=== PATIENT | female | born 1990 | race African-American/Black ===

== ENCOUNTER 2016-06-16 10:55 | Inpatient (IN) | payer BC ==
[~2016-06-16] VITALS: Ht 165.1 cm; Wt 86.2 kg
[~2016-06-16 10:55] MED LIST: ADVAIR 250-501 EACH INH; CEPHALEXIN500 MG ORAL; FIORICET1 EA ORAL; NORCO 5-325 TA1 EACH ORAL; ZOFRAN4 M3 ORAL
[2016-06-16] MEDS ORDERED: Ampicillin/Sulbactam Sod 3 GM in NS 100 ML IV SCH (11:45)
[2016-06-16] MEDS: Morphine Sulfate 4mg/ml Inj IVP ONE ×2 (11:45→12:09)
[2016-06-16] MEDS ORDERED: Unasyn 3gm Inj ONE (12:08)
[2016-06-16 12:21] LABS: BASOPHILS % (AUTO) 1.5 % (0.0-2.0); EOSINOPHILS % (AUTO) 5.7 % (0.0-3.0); LYMPHOCYTES % (AUTO) 45.7 % (20.0-45.0); MEAN CORPUSCULAR HEMOGLOBIN 29.6 PG (27.0-31.0); MEAN CORPUSCULAR HGB CONC 32.7 G/DL (32.0-36.0); MEAN CORPUSCULAR VOLUME 91 FL (80-99); MEAN PLATELET VOLUME 8.4 FL (6.5-10.1); MONOCYTES % (AUTO) 6.1 % (1.0-10.0); PLATELET COUNT 234 K/UL (150-450); RED BLOOD COUNT 4.72 M/UL (4.20-5.40); RED CELL DISTRIBUTION WIDTH 12.2 % (11.6-14.8)
--- NOTE | 2016-06-16 12:25 | Emergency Room Report ---
History of Present Illness General Chief Complaint: Wound Recheck/Suture Removal Source: Patient Present Illness HPI Patient is a 25-year-old female who presented after having increased pain and discharge from her surgical sites. Patient was noted to have prior history of hidradenitis suppuritiva. She had previous surgery which she was noted to have some purulent drainage. The patient had subjective fever. She reported older wounds having some drainage Allergies: Coded Allergies: CELECOXIB (Verified Allergy, Unknown, 05/11/16) TRAMADOL (Verified Allergy, Unknown, 05/11/16) Patient History Past Medical History: see triage record Last Menstrual Period: now Now: No Reviewed Nursing Documentation: PMH: Agreed, PSxH: Agreed Nursing Documentation-PMH Past Medical History: No History, Except For Hx Cardiac Problems: No Hx Asthma: Yes Hx Cancer: No Hx Gastrointestinal Problems: No Hx Neurological Problems: No - hydranedritis Review of Systems All Other Systems: negative except mentioned in HPI Physical Exam Vital Signs Date Time Temp Pulse Resp B/P Pulse Ox O2 Delivery O2 Flow Rate FiO2 06/16/16 11:04 99.1 83 18 129/86 98 Room Air Sp02 EP Interpretation: reviewed, normal General Appearance: normal inspection, well appearing, no apparent distress, alert, GCS 15 Head: atraumatic ENT: normal ENT inspection, hearing grossly normal, normal voice Neck: normal inspection, full range of motion, supple, no bony tend Respiratory: normal inspection, lungs clear, normal breath sounds, no respiratory distress, no retraction, no wheezing Cardiovascular #1: regular rate, rhythm, no edema Gastrointestinal: normal inspection, normal bowel sounds, non tender, soft, no guarding, no hernia Genitourinary: no CVA tenderness Musculoskeletal: normal inspection, back normal, normal range of motion Neurologic: normal inspection, alert, oriented x3, responsive, fiber optics supervisor III-XII nml as tested, motor strength/tone normal, speech normal Psychiatric: normal inspection, judgement/insight normal, mood/affect normal Skin: well hydrated, other - purulent drainage to both axilla wound open Medical Decision Making Diagnostic Impression: Primary Impression: Hydradenitis ER Course The patient is a 25-year-old female who presented for bilateral wound discharge. Differential diagnosis included was not limited to wound dehiscence , cellulitis, seroma among others.Because of complexity of patient's case laboratory testing and imaging studies were ordered. The patient was noted to have evidence of purulent drainage from her wounds. The wounds were cultured. The patient started on IV antibiotics. The patient will be admitted to Dr. Carty for further management of infection Labs Test 06/16/16 11:55 White Blood Count 6.0 K/UL (4.8-10.8) Red Blood Count 4.72 M/UL (4.20-5.40) Hemoglobin 14.0 G/DL (12.0-16.0) Hematocrit 42.8 % (37.0-47.0) Mean Corpuscular Volume 91 FL (80-99) Mean Corpuscular Hemoglobin 29.6 PG (27.0-31.0) Mean Corpuscular Hemoglobin Concent 32.7 G/DL (32.0-36.0) Red Cell Distribution Width 12.2 % (11.6-14.8) Platelet Count 234 K/UL (150-450) Mean Platelet Volume 8.4 FL (6.5-10.1) Neutrophils (%) (Auto) 41.0 % (45.0-75.0) Lymphocytes (%) (Auto) 45.7 % (20.0-45.0) Monocytes (%) (Auto) 6.1 % (1.0-10.0) Eosinophils (%) (Auto) 5.7 % (0.0-3.0) Basophils (%) (Auto) 1.5 % (0.0-2.0) Sodium Level 140 mEQ/L (135-145) Potassium Level 3.9 mEQ/L (3.4-4.9) Chloride Level 99 mEQ/L (98-107) Carbon Dioxide Level 25 mEQ/L (20-30) Anion Gap 16 (5-15) Blood Urea Nitrogen 9 mg/dL (7-23) Creatinine 0.9 mg/dL (0.5-0.9) Estimat Glomerular Filtration Rate > 60 mL/min (>60) Glucose Level 96 mg/dL (74-106) Lactic Acid Level 1.50 mmol/L (0.66-2.22) Calcium Level 9.7 mg/dL (8.6-10.2) Total Bilirubin 0.3 mg/dL (0.0-1.2) Aspartate Amino Transf (AST/SGOT) 15 U/L (5-40) Alanine Aminotransferase (ALT/SGPT) 7 U/L (3-33) Alkaline Phosphatase 58 U/L (35-104) Total Creatine Kinase 65 U/L (26-140) Troponin I < 0.30 ng/mL (<=0.30) Total Protein 7.5 g/dL (6.6-8.7) Albumin 4.4 g/dL (3.5-5.2) Globulin 3.1 g/dL Albumin/Globulin Ratio 1.4 (1.0-2.7) Last Vital Signs Date Time Temp Pulse Resp B/P Pulse Ox O2 Delivery O2 Flow Rate FiO2 06/16/16 11:04 99.1 83 18 129/86 98 Room Air Status: unchanged Disposition: ADMITTED INPATIENT Condition: Serious Referrals: NICOLE DRAKE (PCP) Dominguez Foreman Jun 16, 2016 12:25
[2016-06-16 12:38] LABS: TROPONIN I < 0.30 ng/mL (<=0.30)
[2016-06-16 12:41] VITALS: BP 129/104
[2016-06-16 12:42] LABS: ALANINE AMINOTRANSFERASE 7 U/L (3-33); ALBUMIN/GLOBULIN RATIO 1.4 (1.0-2.7); ANION GAP 16 (5-15); ASPARTATE AMINO TRANSFERASE 15 U/L (5-40); CALCIUM 9.7 mg/dL (8.6-10.2); CARBON DIOXIDE 25 mEQ/L (20-30); CHLORIDE 99 mEQ/L (98-107); CREATININE 0.9 mg/dL (0.5-0.9); GLOMERULAR FILTRATION RATE > 60 mL/min (>60); POTASSIUM 3.9 mEQ/L (3.4-4.9); SODIUM 140 mEQ/L (135-145); TOTAL PROTEIN 7.5 g/dL (6.6-8.7)
[2016-06-16 13:24] LABS: HEMOLYSIS 42
[2016-06-16 13:41] LABS: CKMB < 1.5 ng/mL (< 3.8)
[2016-06-16 13:57] VITALS: BP 112/65
[2016-06-16] MEDS ORDERED: VENTOLIN HFA18 GM INH (14:00)
[2016-06-16 15:20] VITALS: BP 116/73
--- NOTE | 2016-06-16 16:15 | History and Physical ---
History of Present Illness General Date patient seen: Jun 16, 2016 Time patient seen: 16:14 Reason for Hospitalization: Wound Recheck/Suture Removal Present Illness HPI Patient is a 25-year-old female who presented after having increased pain and discharge from her surgical sites. Patient was noted to have prior history of hidradenitis suppuritiva. She had previous surgery which she was noted to have some purulent drainage. The patient had subjective fever. She reported older wounds having some drainage. no cp/sob/f/c Allergies: Coded Allergies: CELECOXIB (Verified Allergy, Unknown, 05/11/16) TRAMADOL (Verified Allergy, Unknown, 05/11/16) Medication History Scheduled Albuterol Sulfate (Ventolin Hfa), 1 PUFF INH EVERY 6 HOURS, (Reported) Cephalexin* (Keflex*), 500 MG ORAL EVERY 6 HOURS, (Reported) Fluticasone/Salmeterol (Advair 250-50 Diskus), 1 PUFF INH EVERY 12 HOURS, ( Reported) Scheduled PRN Acetamin/Butalbital/Caffeine* (Fioricet*), 1 TAB ORAL Q6H PRN for For Headache, (Reported) Hydrocodone Bit/Acetaminophen 5-325* ([place] 5-325*), 1 TAB ORAL Q4H PRN for For Pain, (Reported) Hydrocodone Bit/Acetaminophen 5-325* ([place] 5-325*), 2 TAB ORAL Q6H PRN for For Pain, (Reported) Ondansetron* (Zofran*), 4 MG ORAL Q6H PRN for Nausea & Vomiting, (Reported) Patient History Healthcare decision maker Resuscitation status Advanced Directive on File Past Medical/Surgical History Past Medical/Surgical History: (1) Hydradenitis (2) abscess Family History Family History: Patient reports no known family medical history. Social History Social History: (1) No significant social history Review of Systems All Other Systems: negative except mentioned in HPI Physical Exam Physical Exam Narrative General Appearance: normal inspection, well appearing, no apparent distress, alert, GCS 15 Head: atraumatic ENT: normal ENT inspection, hearing grossly normal, normal voice Neck: normal inspection, full range of motion, supple, no bony tend Respiratory: normal inspection, lungs clear, normal breath sounds, no respiratory distress, no retraction, no wheezing Cardiovascular #1: regular rate, rhythm, no edema Gastrointestinal: normal inspection, normal bowel sounds, non tender, soft, no guarding, no hernia Genitourinary: no CVA tenderness Musculoskeletal: normal inspection, back normal, normal range of motion Neurologic: normal inspection, alert, oriented x3, responsive, carpenter general III-XII nml as tested, motor strength/tone normal, speech normal Psychiatric: normal inspection, judgement/insight normal, mood/affect normal Skin: well hydrated, other - purulent drainage to both axilla wound open Last 24 Hour Vital Signs Date Time Temp Pulse Resp B/P Pulse Ox O2 Delivery O2 Flow Rate FiO2 06/16/16 15:20 98.0 79 19 116/73 100 Room Air 06/16/16 13:57 98.0 73 24 112/65 100 Room Air 06/16/16 12:41 98.0 76 18 129/104 99 Room Air 06/16/16 11:04 99.1 83 18 129/86 98 Room Air Laboratory Tests Test 06/16/16 11:55 06/16/16 15:58 White Blood Count 6.0 K/UL (4.8-10.8) Red Blood Count 4.72 M/UL (4.20-5.40) Hemoglobin 14.0 G/DL (12.0-16.0) Hematocrit 42.8 % (37.0-47.0) Mean Corpuscular Volume 91 FL (80-99) Mean Corpuscular Hemoglobin 29.6 PG (27.0-31.0) Mean Corpuscular Hemoglobin Concent 32.7 G/DL (32.0-36.0) Red Cell Distribution Width 12.2 % (11.6-14.8) Platelet Count 234 K/UL (150-450) Mean Platelet Volume 8.4 FL (6.5-10.1) Neutrophils (%) (Auto) 41.0 % (45.0-75.0) L Lymphocytes (%) (Auto) 45.7 % (20.0-45.0) H Monocytes (%) (Auto) 6.1 % (1.0-10.0) Eosinophils (%) (Auto) 5.7 % (0.0-3.0) H Basophils (%) (Auto) 1.5 % (0.0-2.0) Sodium Level 140 mEQ/L (135-145) Potassium Level 3.9 mEQ/L (3.4-4.9) Chloride Level 99 mEQ/L (98-107) Carbon Dioxide Level 25 mEQ/L (20-30) Anion Gap 16 (5-15) H Blood Urea Nitrogen 9 mg/dL (7-23) Creatinine 0.9 mg/dL (0.5-0.9) Estimat Glomerular Filtration Rate > 60 mL/min (>60) Glucose Level 96 mg/dL (74-106) Lactic Acid Level 1.50 mmol/L (0.66-2.22) Calcium Level 9.7 mg/dL (8.6-10.2) Total Bilirubin 0.3 mg/dL (0.0-1.2) Aspartate Amino Transf (AST/SGOT) 15 U/L (5-40) Alanine Aminotransferase (ALT/SGPT) 7 U/L (3-33) Alkaline Phosphatase 58 U/L (35-104) Total Creatine Kinase 65 U/L (26-140) Creatine Kinase MB < 1.5 ng/mL (< 3.8) Creatine Kinase MB Relative Index Troponin I < 0.30 ng/mL (<=0.30) Total Protein 7.5 g/dL (6.6-8.7) Albumin 4.4 g/dL (3.5-5.2) Globulin 3.1 g/dL Albumin/Globulin Ratio 1.4 (1.0-2.7) Urine Color Pending Urine Appearance Pending Urine pH Pending Urine Specific [place] Pending Urine Protein Pending Urine Glucose (UA) Pending Urine Ketones Pending Urine Occult Blood Pending Urine Nitrite Pending Urine Bilirubin Pending Urine Urobilinogen Pending Urine Leukocyte Esterase Pending Height (Feet): 5 Height (Inches): 5.00 Weight (Pounds): 190 Medications Current Medications Medications (Trade) Dose Ordered Sig/Kourtney Route PRN Reason Start Time Stop Time Status Last Admin Dose Admin Ampicillin Sodium/ Sulbactam Sodium/ Sodium Chloride (Unasyn/Sodium Chloride 100ml bag) 100 ml @ 200 mls/hr Q8H IV 06/16/16 11:45 06/17/16 11:44 06/16/16 12:15 Assessment/Plan Problem List: (1) abscess (2) Hydradenitis ICD Codes: L73.2 - Hidradenitis suppurativa SNOMED: 04331735 Status: progressing Assessment/Plan Admit to inpatient - Blood cultures - Start IV abx - Pain control - Surgical consult If patient is required to have surgery, based on the patient's medical history, and other available ancillary data, the patient is a LOW risk for an INTERMEDIATE risk procedure. Per the most recent ACC/AHA guidelines, the patient does not need any further cardiopulmonary testing prior to the procedure and there do not appear to be any clear medical contraindications to proceeding with the proposed procedure Prema Mathias M.D. Jun 16, 2016 16:15
[2016-06-16 16:17] LABS: APPEARANCE,URINE CLEAR; KETONES,URINE 1+ (NEGATIVE); LEUKOCYTE ESTERASE ,URINE 1+ (NEGATIVE); NITRITE,URINE NEGATIVE (NEGATIVE); PH,URINE 6 (4.5-8.0); PROTEIN,URINE NEGATIVE (NEGATIVE); UROBILINOGEN,URINE NORMAL MG/DL (0.0-1.0)
[2016-06-16 16:23] LABS: BACTERIA,URINE FEW /HPF; RBC,URINE 0-2 /HPF (0 - 2); SQUAMOUS EPITHELIAL CELL,UR FEW /LPF (NONE/OCC)
[2016-06-16 16:24] LABS: AMORPHOUS SEDIMENT,UR FEW /LPF; MUCUS,URINE FEW /LPF (NONE/OCC)
[2016-06-16] MEDS: D5 1/2NS 1,000 ML IV SCH (19:00)
[2016-06-17] VITALS (14 sets, daily range): BP systolic 120–159; BP diastolic 72–80
[2016-06-17] MEDS: D5 1/2NS 1,000 ML IV SCH ×2 (08:21→21:58)
--- NOTE | 2016-06-17 09:05 | Pre-Procedure Note/Attestation ---
Pre-Procedure Note/Attestation Complete Prior to Procedure Planned Procedure: bilateral Procedure Narrative: Bilateral axillary and chest wall wound closures Attestation I attest that I discussed the nature of the procedure; its benefits; risks and complications; and alternatives (and the risks and benefits of such alternatives ), prior to the procedure, with the patient (or the patient's legal union contract representative). I attest that, if there was a reasonable possibility of needing a blood transfusion, the patient (or the patient's legal union contract representative) was given the [facility] standardized written summary, pursuant to the [place] Blood Safety Act ([place] Health and Safety Code # 1645, as amended). I attest that I re-evaluated the patient just prior to the surgery and that there has been no change in the patient's H&P, except as documented below: NICOLE DRAKE Jun 17, 2016 09:05
--- NOTE | 2016-06-17 10:07 | Operative Note - PDOC ---
Operative Note Operative Note Pre-op Diagnosis: Open axillary and chest wounds Procedure: Closure of axillary and chest wounds Post-op Diagnosis: same as pre-op Surgeon: Wilda Fingernail Former: Blanca Anesthesia: general Specimen: none Complications: none Condition: stable Estimated Blood Loss: minimal Drains: none Implant(s) used?: No NICOLE DRAKE Jun 17, 2016 10:07
[2016-06-17] MEDS ORDERED: Rate Change PCA 1 Each MISC PRN ×2 (10:15→14:00)
[2016-06-17] MEDS ORDERED: Zolpidem 5mg tab ORAL PRN (10:15)
[2016-06-17] MEDS ORDERED: Lidocaine 1% 10mg/ml/Epi 0.005mg/ml 30ml vial INJ ONE (10:40)
[2016-06-17] MEDS ORDERED: Propofol 10mg/ml 20ml IV ONE (10:53)
[2016-06-17] MEDS ORDERED: Ketorolac 30mg Inj ONE (11:00)
[2016-06-17] MEDS ORDERED: fentaNYL 100 mcg/2 mL IV ONE (11:00)
[2016-06-17] MEDS ORDERED: NS Irrig 1000ml ONE (11:00)
[2016-06-17] MEDS ORDERED: LR 1000ml ONE (11:00)
[2016-06-17] MEDS ORDERED: Midazolam 2mg/2ml Inj ONE (11:00)
[2016-06-17] MEDS ORDERED: Sterile Water Irrig 1000ml IRRIG ONE (11:00)
[2016-06-17] MEDS ORDERED: LR 1000ml 1,000 ML IVLG SCH (11:46)
--- NOTE | 2016-06-17 11:46 | Anethesia Preoperative Eval ---
Anesthesia Pre-op PMH/ROS General Date of Evaluation: Jun 17, 2016 Time of Evaluation: 10:52 Anesthesiologist: Jennifer ASA Score: ASA 2 Mallampati Score Class I : Soft palate, uvula, fauces, pillars visible Class II: Soft palate, uvula, fauces visible Class III: Soft palate, base of uvula visible Class IV: Only hard plate visible Mallampati Classification: Class II Surgeon: Wilda Diagnosis: Recurrent hydradenitis Surgical Procedure: Revision and closure of bilateral axillary wounds Anesthesia History: none Family History: no anesthesia problems Allergies: Coded Allergies: CELECOXIB (Verified Allergy, Unknown, 05/11/16) TRAMADOL (Verified Allergy, Unknown, 05/11/16) Past Medical History Cardiovascular: Denies: CAD, HTN, VA, arrhythmia, other, valve dz Pulmonary: Denies: COPD, KEL, asthma, other Gastrointestinal/Genitourinary: Reports: GERD, Denies: CRI, ESRD, other Neurologic/Psychiatric: Reports: depression/anxiety, Denies: CVA, TIA, dementia, other Endocrine: Denies: DM, hypothyroidism, other, steroids HEENT: Denies: [place] (L), [place] (R), cataract (L), cataract (R), glaucoma, other Musculoskeletal/Integumentary: Reports: other - Recurrent HS, Denies: DDD, DJD, OA, RA, edema Other: other - overweight PMH Narrative: as above PSxH Narrative: Multiple Sx for HS treatment Anesthesia Pre-op Phys. Exam Physician Exam Last Vital Signs Date Time Temp Pulse Resp B/P Pulse Ox O2 Delivery O2 Flow Rate FiO2 06/17/16 08:46 97.9 69 18 124/77 100 Room Air Constitutional: NAD Neurologic: CN 2-12 intact Cardiovascular: RRR, no M/R/G Respiratory: CTA Gastrointestinal: S/NT/ND Airway Exam Mallampati Score: Class II MO: full Neck: flexible ROM: full Teeth: intact Dentures: no lower, no upper Anesthesia Pre-op A/P Labs Hematology Test 06/16/16 11:55 White Blood Count 6.0 K/UL (4.8-10.8) Red Blood Count 4.72 M/UL (4.20-5.40) Hemoglobin 14.0 G/DL (12.0-16.0) Hematocrit 42.8 % (37.0-47.0) Mean Corpuscular Volume 91 FL (80-99) Mean Corpuscular Hemoglobin 29.6 PG (27.0-31.0) Mean Corpuscular Hemoglobin Concent 32.7 G/DL (32.0-36.0) Red Cell Distribution Width 12.2 % (11.6-14.8) Platelet Count 234 K/UL (150-450) Mean Platelet Volume 8.4 FL (6.5-10.1) Neutrophils (%) (Auto) 41.0 % (45.0-75.0) L Lymphocytes (%) (Auto) 45.7 % (20.0-45.0) H Monocytes (%) (Auto) 6.1 % (1.0-10.0) Eosinophils (%) (Auto) 5.7 % (0.0-3.0) H Basophils (%) (Auto) 1.5 % (0.0-2.0) Chemistry Test 06/16/16 11:55 Sodium Level 140 mEQ/L (135-145) Potassium Level 3.9 mEQ/L (3.4-4.9) Chloride Level 99 mEQ/L (98-107) Carbon Dioxide Level 25 mEQ/L (20-30) Anion Gap 16 (5-15) H Blood Urea Nitrogen 9 mg/dL (7-23) Creatinine 0.9 mg/dL (0.5-0.9) Estimat Glomerular Filtration Rate > 60 mL/min (>60) Glucose Level 96 mg/dL (74-106) Lactic Acid Level 1.50 mmol/L (0.66-2.22) Calcium Level 9.7 mg/dL (8.6-10.2) Total Bilirubin 0.3 mg/dL (0.0-1.2) Aspartate Amino Transf (AST/SGOT) 15 U/L (5-40) Alanine Aminotransferase (ALT/SGPT) 7 U/L (3-33) Alkaline Phosphatase 58 U/L (35-104) Total Creatine Kinase 65 U/L (26-140) Creatine Kinase MB < 1.5 ng/mL (< 3.8) Creatine Kinase MB Relative Index Troponin I < 0.30 ng/mL (<=0.30) Total Protein 7.5 g/dL (6.6-8.7) Albumin 4.4 g/dL (3.5-5.2) Globulin 3.1 g/dL Albumin/Globulin Ratio 1.4 (1.0-2.7) Risk Assessment & Plan Assessment: ASA2 Plan: GA with LMA Status Change Before Surgery: No Pre-Antibiotics Drug: Ancef 1gr. Given Within 1 Hr of Incision: Yes Time Given: 11:12 ANH FELIZ M.D. Jun 17, 2016 11:46
--- NOTE | 2016-06-17 11:58 | Consultation ---
DATE OF CONSULTATION: 06/17/2016 CONSULTING PHYSICIAN: Fina Astudillo M.D. HISTORY OF PRESENT ILLNESS: This is a 25-year-old, female, admitted to the emergency room last night for bilateral wound dehiscence under axillary. She is approximately three and half weeks postop from closure of these wounds. She presented with drainage and pain in these areas. She was admitted and started on IV antibiotics by the medical team and I have seen the patient, for evaluation of these wounds. PAST MEDICAL HISTORY: Significant for bilateral axillary and chest wall wound reconstructions. PAST SURGICAL HISTORY: Same as above. MEDICATIONS: Include antibiotics. ALLERGIES: Include tramadol and celecoxib. PHYSICAL EXAMINATION: GENERAL: The patient is alert and oriented. HEART: Regular rate and rhythm. ABDOMEN: Soft, nontender, and nondistended. EXTREMITIES: Examination of the axilla reveals an open wound measuring 2 x 6 cm in the right axilla and a 4 x 6 cm in the left axilla and a 2 x 2 cm open wound on the chest wall medially in the midline. ASSESSMENT AND PLAN: This is a 25-year-old female with bilateral axillary and chest wall wound dehiscence. So, we taken back to the operating room for closure of these wounds. Fina Astudillo M.D. DR: PARMJIT JOB#: [id number] CC: EMILEE
[2016-06-17] MEDS ORDERED: Meperidine 25mg/ml Inj IV PRN (12:00)
[2016-06-17] MEDS ORDERED: Midazolam 2mg/2ml Inj IVP PRN (12:00)
[2016-06-17] MEDS ORDERED: fentaNYL 100 mcg/2 mL IV PRN (12:00)
[2016-06-17] MEDS ORDERED: Metoclopramide 10mg/2ml Inj IVP PRN (12:00)
[2016-06-17] MEDS ORDERED: Morphine Sulfate 2mg/ml Inj IVP PRN ×2 (12:00→14:00)
[2016-06-17] MEDS ORDERED: DiphenhydrAMINE 50mg/ml Inj IVP PRN ×2 (12:00→14:00)
[2016-06-17] MEDS ORDERED: Ketorolac 30mg Inj IV PRN (12:00)
[2016-06-17] MEDS ORDERED: Ipratropium 0.02% Inh Soln 2.5ml UD ONE (13:35)
[2016-06-17] MEDS ORDERED: Naloxone 0.4mg/ml Inj IVP PRN (14:00)
[2016-06-17] MEDS ORDERED: Ipratropium 0.02% Inh Soln 2.5ml UD HHN ONE (14:00)
[2016-06-17] MEDS ORDERED: LORazepam 1mg tab ORAL PRN (14:00)
[2016-06-17] MEDS: PCA Morphine 1mg/ml 30 ML IV PRN (14:19)
[2016-06-17] MEDS: PCA shift volume MISC SCH ×2 (15:00→23:00)
[2016-06-17] MEDS ORDERED: PCA shift volume MISC SCH (15:00)
[2016-06-17] MEDS ORDERED: D5 1/2NS 1000ml IV ONE (18:16)
[2016-06-17] MEDS ORDERED: Tubing IV Secondary IV ONE (18:16)
--- NOTE | 2016-06-17 19:18 | Operative Note - Dictated ---
DATE OF OPERATION: 06/16/2016 PREOPERATIVE DIAGNOSES: 1. Open left axillary wound. 2. Open right axillary wound. 3. Open midline chest wall wound. POSTOPERATIVE DIAGNOSES: 1. Open left axillary wound. 2. Open right axillary wound. 3. Open midline chest wall wound. PROCEDURES: 1. Left axillary wound preparation for flap closure. 2. Reelevation of left chest wall flap for closure of left axillary wound. 3. Right axillary wound preparation for flap closure. 4. Reelevation of right-sided lateral chest wall flap for closure of right axillary wound. 5. Reelevation of medial arm flap for re-closure of right axillary wound. 6. Preparation of chest wall wound for flap closure. 7. Reelevation of left chest wall fasciocutaneous flap for closure of chest wall wound. 8. Reelevation of right chest wall fasciocutaneous flap for closure of chest wall wound. SURGEON: Fina Astudillo M.D. [employer]: Linaet Rios M.D. ANESTHESIA: General. COMPLICATIONS: None. DRAINS: None. DISPOSITION: Stable to the recovery room. INDICATIONS FOR SURGERY: This is a 25-year-old female, who was admitted to the emergency room last night for pain and drainage associated with wounds in her axillae as well as chest wall. She has about one month postoperative from her axillary reconstruction and she presented and was started on IV antibiotics. I saw the patient and felt that she was an appropriate candidate for debridement and re-closure of her wounds. She understood the risks and benefits of surgery and agreed to proceed. DETAILS OF THE OPERATION: The patient was brought to the operating room and laid supine on the operating room table. Her chest wall and bilateral axillae were prepped and draped in a sterile and usual fashion. We first began by addressing the left axillary wound by using a marking pen to delineate the margins of the wound that was opened, 10-blade was then used to excise the wounds down to healthier subcutaneous fat. Once this was done, the wound was copiously irrigated with lavage. Hemostasis was then achieved, left lateral chest wall flap that had been previously elevated was reelevated based off of perforators of the thoracoacromial artery with proximal and distal incisions made to fully mobilize the flap and once this was done, we were able to accomplish closure of the left axillary wound by re-advancing the chest wall flap using #0 and 2-0 Vicryl sutures and a 2-0 Prolene was used to close the skin. We then turned our attention to the right axillary wound which was in a similar fashion marked out with a marking pen and excised using a #15 blade down to healthy subcutaneous fat and in a similar fashion the chest wall flap on that side was elevated based off of perforators of the thoracoacromial artery with proximal and distal incisions also made and we also elevated the medial arm flap that had been previously elevated, this was reelevated with proximal distal incisions made to fully mobilize the flap and the flap was based on perforators of the brachial artery. Once both of these flaps were fully mobilized, the wound was then closed with 0 and 2-0 Vicryl sutures and 2-0 Prolene was used to close the skin. We then turned our attention to the midline chest wall wound which was in between both breasts. A marking pen was used to delineate the margins of the wound. A 15-blade was used to excise the wound down to healthy tissue and then the lateral chest wall flaps in the left and right that have been previously elevated were reelevated based off of perforators of the internal mammary artery with proximal and distal incisions to made fully mobilize both flaps and the flaps were then brought together in the midline using #0 and 2-0 Vicryl sutures and 2-0 Prolene was used to close the skin. The patient tolerated the procedure well. There was no complications. Fina Astudillo M.D. DR: Charles JOB#: [id number] CC:
--- NOTE | 2016-06-17 20:00 | General Progress Note ---
Assessment/Plan Problem List: (1) abscess (2) Hydradenitis ICD Codes: L73.2 - Hidradenitis suppurativa SNOMED: 31741684 (3) PMS (premenstrual syndrome) ICD Codes: N94.3 - Premenstrual tension syndrome SNOMED: 394028, 17807165 Assessment/Plan Admit to inpatient - Blood cultures - Start IV abx, Cefazolin - Pain control - Surgical consult, Dr. Astudillo, pt s/p b/l axillary wound closure 06/17/16: -heat packs Subjective Date patient seen: Jun 17, 2016 Time patient seen: 19:59 Allergies: Coded Allergies: TRAMADOL (Verified Allergy, Intermediate, 06/17/16) REACTION TO MED IS SWOLLEN LEG, NO SHORT OF BREATH CELECOXIB (Verified Allergy, Unknown, 05/11/16) Subjective no acute events o/n Objective Last 24 Hour Vital Signs Date Time Temp Pulse Resp B/P Pulse Ox O2 Delivery O2 Flow Rate FiO2 06/17/16 16:13 18 06/17/16 16:07 98.2 84 19 120/75 99 Room Air 06/17/16 15:34 97.9 06/17/16 15:32 97.9 06/17/16 15:32 97.9 06/17/16 15:00 18 06/17/16 14:57 70 20 145/72 100 Room Air 06/17/16 14:44 20 06/17/16 14:37 71 20 147/78 100 Room Air 06/17/16 14:29 20 06/17/16 14:25 72 20 147/78 100 Room Air 06/17/16 14:24 20 06/17/16 14:19 20 06/17/16 14:07 72 20 147/78 100 Room Air 06/17/16 14:00 73 20 152/78 100 Room Air 06/17/16 13:45 84 20 147/78 100 Room Air 06/17/16 13:32 93 20 149/75 100 Room Air 06/17/16 13:12 107 20 137/73 100 Simple Mask 8.0 06/17/16 13:07 86 20 137/80 100 Simple Mask 8.0 06/17/16 13:02 97.3 86 20 159/75 100 Simple Mask 8.0 06/17/16 08:46 97.9 69 18 124/77 100 Room Air 06/17/16 04:00 97.9 74 18 128/75 99 Room Air Intake and Output 06/16/16 06/17/16 19:00 07:00 Intake Total 100 ml 375 ml Balance 100 ml 375 ml Intake IV Total 100 ml 375 ml # Voids 3 Height (Feet): 5 Height (Inches): 5.00 Weight (Pounds): 190 Objective General Appearance: normal inspection, well appearing, no apparent distress, alert, GCS 15 Head: atraumatic ENT: normal ENT inspection, hearing grossly normal, normal voice Neck: normal inspection, full range of motion, supple, no bony tend Respiratory: normal inspection, lungs clear, normal breath sounds, no respiratory distress, no retraction, no wheezing Cardiovascular #1: regular rate, rhythm, no edema Gastrointestinal: normal inspection, normal bowel sounds, non tender, soft, no guarding, no hernia Genitourinary: no CVA tenderness Musculoskeletal: normal inspection, back normal, normal range of motion Neurologic: normal inspection, alert, oriented x3, responsive, violin teacher III-XII nml as tested, motor strength/tone normal, speech normal Psychiatric: normal inspection, judgement/insight normal, mood/affect normal Skin: well hydrated, incision c/d/i Prema Mathias M.D. Jun 17, 2016 20:00
[2016-06-17] MEDS: Heparin 5000 units/ml inj SUBQ SCH (22:07)
[2016-06-18 04:00] VITALS: BP 128/76
[2016-06-18] MEDS: PCA shift volume MISC SCH ×3 (07:19→23:00)
--- NOTE | 2016-06-18 07:52 | Immediate Post-Op Evaluation ---
Immediate Post-Op Evalulation Immediate Post-Op Evalulation Procedure: Bilateral debridement and closure of axillary wounds Date of Evaluation: Jun 17, 2016 Time of Evaluation: 13:12 IV Fluids: 800 Blood Products: none Estimated Blood Loss: <50 Urinary Output: none Blood Pressure Systolic: 134 Blood Pressure Diastolic: 65 Pulse Rate: 82 Respiratory Rate: 20 O2 Sat by Pulse Oximetry: 99 Temperature (Fahrenheit): 97.3 Pain Score (1-10): 3 Nausea: No Vomiting: No Complications none Patient Status: reacts, patent, none Hydration Status: adequate ANH FELIZ M.D. Jun 18, 2016 07:52
--- NOTE | 2016-06-18 07:54 | 48 Hour Post Anesthesia Eval ---
Post Anesthesia Evaluation Procedure: Bilateral debridement and closure of axillary wounds Date of Evaluation: Jun 18, 2016 Time of Evaluation: 07:53 Blood Pressure Systolic: 128 0: 75 Pulse Rate: 82 Respiratory Rate: 18 Temperature (Fahrenheit): 97.6 O2 Sat by Pulse Oximetry: 98 Airway: patent Nausea: No Vomiting: No Pain Intensity: 3 Hydration Status: adequate Cardiopulmonary Status: stable Mental Status/LOC: patient returned to baseline Follow-up Care/Observations: n/a Post-Anesthesia Complications: none Follow-up care needed: N/A ANH FELIZ M.D. Jun 18, 2016 07:54
[2016-06-18 08:00] VITALS: BP 123/74
--- NOTE | 2016-06-18 09:12 | General Progress Note ---
Progress Note Progress Note Pt seen and examined. POD # 1 and doing well. Dressings intact. Plan for continued IV abx and pain meds. Will take down dressings in 2 days. NICOLE Sharma MD Jun 18, 2016 09:12
[2016-06-18] MEDS: Heparin 5000 units/ml inj SUBQ SCH ×2 (09:28→21:06)
--- NOTE | 2016-06-18 10:48 | General Progress Note ---
Assessment/Plan Problem List: (1) abscess (2) Hydradenitis ICD Codes: L73.2 - Hidradenitis suppurativa SNOMED: 93104872 (3) PMS (premenstrual syndrome) ICD Codes: N94.3 - Premenstrual tension syndrome SNOMED: 991810, 53274668 (4) Macromastia ICD Codes: N62 - Hypertrophy of breast SNOMED: 138919035 Assessment/Plan Admit to inpatient - Blood cultures - Start IV abx, Cefazolin - Pain control - Surgical consult, Dr. Astudillo, pt s/p b/l axillary wound closure 06/17/16: -heat packs pt reports significant and debilitating pain in neck and upper back with neuropathy in arms and intermittent pleurissy, likely 2/2 macromastia. Pt has failed conservative outpatient management with PT and pain management. From the medical standpoint, would recommend consideration for breast reduction surgery for symptom relief. Will consult with surgeon, Dr. Astudillo. Subjective Date patient seen: Jun 18, 2016 Time patient seen: 10:41 Allergies: Coded Allergies: TRAMADOL (Verified Allergy, Intermediate, 06/17/16) REACTION TO MED IS SWOLLEN LEG, NO SHORT OF BREATH CELECOXIB (Verified Allergy, Unknown, 05/11/16) Subjective no acute events o/n; pt reports pain in neck and upper back with neuropathy in arms Objective Last 24 Hour Vital Signs Date Time Temp Pulse Resp B/P Pulse Ox O2 Delivery O2 Flow Rate FiO2 06/18/16 08:00 19 06/18/16 08:00 97.9 72 20 123/74 100 Room Air 06/18/16 07:54 82 18 98 06/18/16 07:52 82 20 99 06/18/16 04:00 18 06/18/16 04:00 97.7 74 18 128/76 98 Room Air 06/18/16 00:00 19 06/17/16 20:34 97.7 83 19 122/72 97 Room Air 06/17/16 20:00 18 06/17/16 16:13 18 06/17/16 16:07 98.2 84 19 120/75 99 Room Air 06/17/16 15:34 97.9 06/17/16 15:32 97.9 06/17/16 15:32 97.9 06/17/16 15:00 18 06/17/16 14:57 70 20 145/72 100 Room Air 06/17/16 14:44 20 06/17/16 14:37 71 20 147/78 100 Room Air 06/17/16 14:29 20 06/17/16 14:25 72 20 147/78 100 Room Air 06/17/16 14:24 20 06/17/16 14:19 20 06/17/16 14:07 72 20 147/78 100 Room Air 06/17/16 14:00 73 20 152/78 100 Room Air 06/17/16 13:45 84 20 147/78 100 Room Air 06/17/16 13:32 93 20 149/75 100 Room Air 06/17/16 13:12 107 20 137/73 100 Simple Mask 8.0 06/17/16 13:07 86 20 137/80 100 Simple Mask 8.0 06/17/16 13:02 97.3 86 20 159/75 100 Simple Mask 8.0 Intake and Output 06/17/16 06/18/16 19:00 07:00 Intake Total 1300 ml 1925 ml Balance 1300 ml 1925 ml Intake Oral 1400 ml IV Total 1300 ml 525 ml # Voids 6 Height (Feet): 5 Height (Inches): 5.00 Weight (Pounds): 190 Objective General Appearance: normal inspection, well appearing, no apparent distress, alert, GCS 15 Head: atraumatic ENT: normal ENT inspection, hearing grossly normal, normal voice Neck: normal inspection, full range of motion, supple, no bony tend Breast: macromastia b/l Respiratory: normal inspection, lungs clear, normal breath sounds, no respiratory distress, no retraction, no wheezing. TTP of posterior ribs on L Cardiovascular #1: regular rate, rhythm, no edema Gastrointestinal: normal inspection, normal bowel sounds, non tender, soft, no guarding, no hernia Genitourinary: no CVA tenderness Musculoskeletal: normal inspection, back normal, normal range of motion Neurologic: normal inspection, alert, oriented x3, responsive, chief librarian circulation department III-XII nml as tested, motor strength/tone normal, speech normal Psychiatric: normal inspection, judgement/insight normal, mood/affect normal Skin: well hydrated, incision c/d/i Prema Mathias M.D. Jun 18, 2016 10:48
[2016-06-18 12:00] VITALS: BP 118/72
[2016-06-18] MEDS ORDERED: DiphenhydrAMINE 25mg/10ml Elixir ORAL PRN (12:45)
[2016-06-18] MEDS: D5 1/2NS 1,000 ML IV SCH (13:50)
[2016-06-18] MEDS: PCA Morphine 1mg/ml 30 ML IV PRN (14:04)
[2016-06-18 16:00] VITALS: BP 125/64
--- NOTE | 2016-06-18 17:40 | General Progress Note ---
Progress Note Progress Note S: pt reports pain in neck and upper back with neuropathy in arms; worse when sitting up or standing for long periods of time Objective General Appearance: normal inspection, well appearing, no apparent distress, alert Head: atraumatic ENT: normal ENT inspection, hearing grossly normal, normal voice Neck: normal inspection, full range of motion, supple, no bony tend Breast: macromastia b/l Respiratory: normal inspection, lungs clear, normal breath sounds, no respiratory distress, no retraction, no wheezing. TTP of posterior ribs on L Cardiovascular #1: regular rate, rhythm, no edema Gastrointestinal: normal inspection, normal bowel sounds, non tender, soft, no guarding, no hernia Genitourinary: no CVA tenderness Musculoskeletal: normal inspection, back normal, normal range of motion Neurologic: normal inspection, alert, oriented x3, responsive, audio narrator III-XII nml as tested, motor strength/tone normal, speech normal Psychiatric: normal inspection, judgement/insight normal, mood/affect normal Skin: well hydrated, incision c/d/i A&P: # Macromastia Pt reports significant and debilitating pain in neck and upper back with neuropathy in arms and intermittent pleurissy, likely 2/2 macromastia. Pt has failed conservative outpatient management with PT and pain management. From the medical standpoint, would recommend consideration for breast reduction surgery for symptom relief. Will consult with surgeon, Dr. Astudillo. Prema Mathias M.D. Jun 18, 2016 17:40
[2016-06-18 20:00] VITALS: BP 131/76
--- NOTE | 2016-06-18 20:32 | Cardiology Report ---
APPROVED REPORT EKG Measurement Heart [id number] Normal sinus rhythm Cannot rule out Anterior infarct, age undetermined Abnormal ECG
[2016-06-19] MEDS: D5 1/2NS 1,000 ML IV SCH ×2 (03:52→13:40)
[2016-06-19 04:00] VITALS: BP 123/86
[2016-06-19] MEDS: PCA shift volume MISC SCH (07:09)
[2016-06-19 08:00] VITALS: BP 131/68
[2016-06-19] MEDS: Cephalexin 500mg cap ORAL SCH ×4 (08:13→21:00)
[2016-06-19] MEDS: Heparin 5000 units/ml inj SUBQ SCH ×2 (08:17→21:00)
[2016-06-19] MEDS: Norco 10mg/325mg tab ORAL PRN (10:14)
[2016-06-19] MEDS ORDERED: Morphine Sulfate 2mg/ml Inj SUBQ PRN ×2 (10:45→11:30)
[2016-06-19 12:00] VITALS: BP 122/69
[2016-06-19] MEDS: Norco 5mg/325mg tab ORAL PRN (14:09)
[2016-06-19] MEDS ORDERED: Morphine Sulfate 2mg/ml Inj IVP PRN (14:15)
[2016-06-19] MEDS ORDERED: NS 110ml ONE (15:32)
--- NOTE | 2016-06-19 15:58 | General Progress Note ---
Assessment/Plan Problem List: (1) abscess (2) Hydradenitis ICD Codes: L73.2 - Hidradenitis suppurativa SNOMED: 80457532 (3) PMS (premenstrual syndrome) ICD Codes: N94.3 - Premenstrual tension syndrome SNOMED: 222991, 43064316 (4) Macromastia ICD Codes: N62 - Hypertrophy of breast SNOMED: 084650282 Assessment/Plan Admit to inpatient - Blood cultures - Start IV abx, Cefazolin--> Cephalexin - Pain control - Surgical consult, Dr. Astudillo, pt s/p b/l axillary wound closure 06/17/16: Subjective Date patient seen: Jun 19, 2016 Time patient seen: 15:57 Allergies: Coded Allergies: TRAMADOL (Verified Allergy, Intermediate, 06/17/16) REACTION TO MED IS SWOLLEN LEG, NO SHORT OF BREATH CELECOXIB (Verified Allergy, Unknown, 05/11/16) Subjective pt lost IV access o/n Objective Last 24 Hour Vital Signs Date Time Temp Pulse Resp B/P Pulse Ox O2 Delivery O2 Flow Rate FiO2 06/19/16 12:00 99.0 77 20 122/69 100 Room Air 06/19/16 08:00 19 06/19/16 08:00 98.1 102 20 131/68 98 Room Air 06/19/16 04:00 98.1 67 18 123/86 100 Room Air 06/19/16 04:00 20 06/19/16 00:00 20 06/18/16 20:00 98.2 87 14 131/76 99 Room Air 06/18/16 19:53 20 06/18/16 16:00 99.0 79 14 125/64 99 Room Air 06/18/16 16:00 19 Intake and Output 06/18/16 06/19/16 19:00 07:00 Intake Total 1110 ml 890 ml Balance 1110 ml 890 ml Intake Oral 460 ml 240 ml IV Total 650 ml 650 ml # Voids 2 3 Height (Feet): 5 Height (Inches): 5.00 Weight (Pounds): 190 Objective General Appearance: normal inspection, well appearing, no apparent distress, alert, GCS 15 Head: atraumatic ENT: normal ENT inspection, hearing grossly normal, normal voice Neck: normal inspection, full range of motion, supple, no bony tend Breast: macromastia b/l Respiratory: normal inspection, lungs clear, normal breath sounds, no respiratory distress, no retraction, no wheezing. TTP of posterior ribs on L Cardiovascular #1: regular rate, rhythm, no edema Gastrointestinal: normal inspection, normal bowel sounds, non tender, soft, no guarding, no hernia Genitourinary: no CVA tenderness Musculoskeletal: normal inspection, back normal, normal range of motion Neurologic: normal inspection, alert, oriented x3, responsive, stripping shovel oiler III-XII nml as tested, motor strength/tone normal, speech normal Psychiatric: normal inspection, judgement/insight normal, mood/affect normal Skin: well hydrated, incision c/d/i Prema Mathias M.D. Jun 19, 2016 15:58
[2016-06-19 16:00] VITALS: BP 130/70
[2016-06-19] MEDS ORDERED: D5 1/2NS 1000ml IV ONE (16:49)
[2016-06-20] MEDS: D5 1/2NS 1,000 ML IV SCH (03:00)
[2016-06-20 04:00] VITALS: BP 127/60
[2016-06-20 08:00] VITALS: BP 125/72
[2016-06-20] MEDS: Cephalexin 500mg cap ORAL SCH ×4 (09:00→21:18)
--- NOTE | 2016-06-20 09:02 | General Progress Note ---
Assessment/Plan Status: stable Assessment/Plan (1) abscess (2) Hydradenitis ICD Codes: L73.2 - Hidradenitis suppurativa SNOMED: 40081249 (3) PMS (premenstrual syndrome) ICD Codes: N94.3 - Premenstrual tension syndrome SNOMED: 143798, 14125052 (4) Macromastia ICD Codes: N62 - Hypertrophy of breast SNOMED: 482118659 Assessment/Plan - Cont Cephalexin - Pain control, bowel regimen, supportive care - Surgical consult, Dr. Astudillo, pt s/p b/l axillary wound closure 06/17/16 - Wound care Subjective Date patient seen: Jun 20, 2016 Time patient seen: 09:00 ROS Limited/Unobtainable: No Constitutional: Reports: no symptoms HEENT: Reports: no symptoms Cardiovascular: Reports: no symptoms Respiratory: Reports: no symptoms Gastrointestinal/Abdominal: Reports: no symptoms Genitourinary: Reports: no symptoms Neurologic/Psychiatric: Reports: no symptoms Endocrine: Reports: no symptoms Hematologic/Lymphatic: Reports: no symptoms Allergies: Coded Allergies: TRAMADOL (Verified Allergy, Intermediate, 06/17/16) REACTION TO MED IS SWOLLEN LEG, NO SHORT OF BREATH CELECOXIB (Verified Allergy, Unknown, 05/11/16) All Systems: reviewed and negative except above Subjective No acute o/n events Pt doing well No complaints Objective Last 24 Hour Vital Signs Date Time Temp Pulse Resp B/P Pulse Ox O2 Delivery O2 Flow Rate FiO2 06/20/16 04:00 98.1 65 20 127/60 99 Room Air 06/19/16 16:00 98.8 76 18 130/70 99 Room Air 06/19/16 12:00 99.0 77 20 122/69 100 Room Air Intake and Output 06/19/16 06/20/16 19:00 07:00 Intake Total 720 ml 610 ml Balance 720 ml 610 ml Intake Oral 720 ml 610 ml # Voids 5 10 # Bowel Movements 1 Height (Feet): 5 Height (Inches): 5.00 Weight (Pounds): 190 Objective General: alert, cooperative, no distress, appears stated age Head: normocephalic, without obvious abnormality, atraumatic Eyes: conjunctivae/corneas clear. PERRL, EOM's intact Throat: lips, mucosa, and tongue normal. MMM Neck: supple, symmetrical, trachea midline, and no JVD Lungs: clear to auscultation bilaterally Heart: regular rate and rhythm, S1, S2 normal, no murmur, click, rub or gallop Abdomen: soft, non-tender, non-distended, bowel sounds normal; no masses or organomegaly Extremities: extremities normal, atraumatic, no cyanosis or edema Pulses: 2+ and symmetric Skin: skin color, texture, turgor normal; no rashes or lesions Neurologic: grossly normal, no focal deficits Arely Hammer M.D. Jun 20, 2016 09:02
[2016-06-20] MEDS: Heparin 5000 units/ml inj SUBQ SCH ×2 (09:57→21:23)
[2016-06-20] MEDS: Norco 10mg/325mg tab ORAL PRN (10:27)
[2016-06-20 12:00] VITALS: BP 120/73
[2016-06-20 16:00] VITALS: BP 125/77
[2016-06-20 20:00] VITALS: BP 141/83
[2016-06-20] MEDS: Norco 5mg/325mg tab ORAL PRN (21:18)
[2016-06-21] VITALS: BP 116/77
[2016-06-21 08:00] VITALS: BP 125/65
[2016-06-21] MEDS: Cephalexin 500mg cap ORAL SCH ×4 (09:09→20:35)
[2016-06-21] MEDS: Heparin 5000 units/ml inj SUBQ SCH ×2 (09:14→20:41)
[2016-06-21] MEDS: Norco 10mg/325mg tab ORAL PRN (09:19)
--- NOTE | 2016-06-21 09:21 | General Progress Note ---
Assessment/Plan Status: stable Assessment/Plan (1) abscess (2) Hydradenitis ICD Codes: L73.2 - Hidradenitis suppurativa SNOMED: 33621215 (3) PMS (premenstrual syndrome) ICD Codes: N94.3 - Premenstrual tension syndrome SNOMED: 436195, 87274403 (4) Macromastia ICD Codes: N62 - Hypertrophy of breast SNOMED: 038531238 Assessment/Plan - Cont Cephalexin - Pain control, bowel regimen, supportive care - Surgical consult, Dr. Astudillo, pt s/p b/l axillary wound closure 06/17/16 - Wound care Subjective Date patient seen: Jun 21, 2016 ROS Limited/Unobtainable: No Constitutional: Reports: no symptoms HEENT: Reports: no symptoms Cardiovascular: Reports: no symptoms Respiratory: Reports: no symptoms Gastrointestinal/Abdominal: Reports: no symptoms Genitourinary: Reports: no symptoms Neurologic/Psychiatric: Reports: no symptoms Endocrine: Reports: no symptoms Hematologic/Lymphatic: Reports: no symptoms Allergies: Coded Allergies: TRAMADOL (Verified Allergy, Intermediate, 06/17/16) REACTION TO MED IS SWOLLEN LEG, NO SHORT OF BREATH CELECOXIB (Verified Allergy, Unknown, 05/11/16) All Systems: reviewed and negative except above Subjective No acute o/n events Pt doing well C/o headache, requested fioricet Passing gas, but no BM yet. Requesting miralax Objective Last 24 Hour Vital Signs Date Time Temp Pulse Resp B/P Pulse Ox O2 Delivery O2 Flow Rate FiO2 06/21/16 08:00 98.1 63 20 125/65 99 Room Air 06/21/16 00:00 97.7 63 19 116/77 94 Room Air 06/20/16 22:17 97.7 06/20/16 20:00 97.9 78 20 141/83 96 Room Air 06/20/16 16:00 97.7 65 20 125/77 99 Room Air 06/20/16 12:00 98.2 65 20 120/73 98 Room Air Intake and Output 06/20/16 06/21/16 19:00 07:00 Intake Total 540 ml 360 ml Balance 540 ml 360 ml Intake Oral 540 ml 360 ml # Voids 3 5 # Bowel Movements 1 Height (Feet): 5 Height (Inches): 5.00 Weight (Pounds): 190 Objective General: alert, cooperative, no distress, appears stated age Head: normocephalic, without obvious abnormality, atraumatic Eyes: conjunctivae/corneas clear. PERRL, EOM's intact Throat: lips, mucosa, and tongue normal. MMM Neck: supple, symmetrical, trachea midline, and no JVD Lungs: clear to auscultation bilaterally Heart: regular rate and rhythm, S1, S2 normal, no murmur, click, rub or gallop Abdomen: soft, non-tender, non-distended, bowel sounds normal; no masses or organomegaly Extremities: extremities normal, atraumatic, no cyanosis or edema Pulses: 2+ and symmetric Skin: skin color, texture, turgor normal; no rashes or lesions Neurologic: grossly normal, no focal deficits Arely Hammer M.D. Jun 21, 2016 09:21
[2016-06-21] MEDS ORDERED: Miralax 17gm pkt ORAL PRN (09:30)
[2016-06-21] MEDS: Pericolace tab ORAL SCH (10:45)
[2016-06-21 12:00] VITALS: BP 133/88
[2016-06-21 16:16] VITALS: BP 140/78
[2016-06-21 20:16] VITALS: BP 118/49
[2016-06-22 08:00] VITALS: BP 129/77
[2016-06-22] MEDS: Cephalexin 500mg cap ORAL SCH ×4 (08:40→21:11)
[2016-06-22] MEDS: Pericolace tab ORAL SCH ×2 (08:40→21:11)
[2016-06-22] MEDS: Heparin 5000 units/ml inj SUBQ SCH ×2 (08:45→21:13)
--- NOTE | 2016-06-22 09:31 | General Progress Note ---
Progress Note Progress Note Pt seen and examined. POD# 5 and doing well. Wounds are healing and no evidence of infection. Continue abx and pain meds. NICOLE Sharma Jun 22, 2016 09:31
[2016-06-22 12:00] VITALS: BP 126/77
[2016-06-22] MEDS: Cyclobenzaprine 10mg Tab ORAL SCH (12:34)
[2016-06-22 16:00] VITALS: BP 125/72
[2016-06-22 18:27] LABS: BASOPHILS % (AUTO) 0.6 % (0.0-2.0); EOSINOPHILS % (AUTO) 3.2 % (0.0-3.0); MEAN CORPUSCULAR HEMOGLOBIN 29.7 PG (27.0-31.0); MEAN CORPUSCULAR HGB CONC 33.4 G/DL (32.0-36.0); MEAN CORPUSCULAR VOLUME 89 FL (80-99); MEAN PLATELET VOLUME 6.4 FL (6.5-10.1); MONOCYTES % (AUTO) 4.7 % (1.0-10.0); NEUTROPHILS % (AUTO) 43.5 % (45.0-75.0); PLATELET COUNT 317 K/UL (150-450); RED BLOOD COUNT 4.32 M/UL (4.20-5.40); RED CELL DISTRIBUTION WIDTH 12.2 % (11.6-14.8); WHITE BLOOD COUNT 6.6 K/UL (4.8-10.8)
--- NOTE | 2016-06-22 18:42 | General Progress Note ---
Assessment/Plan Problem List: (1) abscess (2) Hydradenitis ICD Codes: L73.2 - Hidradenitis suppurativa SNOMED: 64089599 (3) PMS (premenstrual syndrome) ICD Codes: N94.3 - Premenstrual tension syndrome SNOMED: 289680, 16915775 (4) Macromastia ICD Codes: N62 - Hypertrophy of breast SNOMED: 684876134 Assessment/Plan Admit to inpatient - Blood cultures - Start IV abx, Cefazolin--> Cephalexin - Pain control - Surgical consult, Dr. Astudillo, pt s/p b/l axillary wound closure 06/17/16: Subjective Date patient seen: Jun 22, 2016 Time patient seen: 18:42 Allergies: Coded Allergies: TRAMADOL (Verified Allergy, Intermediate, 06/17/16) REACTION TO MED IS SWOLLEN LEG, NO SHORT OF BREATH CELECOXIB (Verified Allergy, Unknown, 05/11/16) Subjective no acute events Objective Last 24 Hour Vital Signs Date Time Temp Pulse Resp B/P Pulse Ox O2 Delivery O2 Flow Rate FiO2 06/22/16 13:33 98.2 06/22/16 12:00 98.4 68 20 126/77 100 Room Air 06/22/16 08:00 98.2 66 20 129/77 98 Room Air 06/21/16 20:16 97.7 69 19 118/49 98 Room Air Intake and Output 06/21/16 06/22/16 19:00 07:00 Intake Total 1120 ml 700 ml Balance 1120 ml 700 ml Intake Oral 1120 ml 700 ml # Voids 1 4 Laboratory Tests 06/22/16 18:15: White Blood Count 6.6, Red Blood Count 4.32, Hemoglobin 12.8, Hematocrit 38.4, Mean Corpuscular Volume 89, Mean Corpuscular Hemoglobin 29.7, Mean Corpuscular Hemoglobin Concent 33.4, Red Cell Distribution Width 12.2, Platelet Count 317, Mean Platelet Volume 6.4L, Neutrophils (%) (Auto) 43.5L, Lymphocytes (%) (Auto) 48.0H, Monocytes (%) (Auto) 4.7, Eosinophils (%) (Auto) 3.2H, Basophils (%) ( Auto) 0.6 Height (Feet): 5 Height (Inches): 5.00 Weight (Pounds): 190 Objective General Appearance: normal inspection, well appearing, no apparent distress, alert, GCS 15 Head: atraumatic ENT: normal ENT inspection, hearing grossly normal, normal voice Neck: normal inspection, full range of motion, supple, no bony tend Breast: macromastia b/l Respiratory: normal inspection, lungs clear, normal breath sounds, no respiratory distress, no retraction, no wheezing. TTP of posterior ribs on L Cardiovascular #1: regular rate, rhythm, no edema Gastrointestinal: normal inspection, normal bowel sounds, non tender, soft, no guarding, no hernia Genitourinary: no CVA tenderness Musculoskeletal: normal inspection, back normal, normal range of motion Neurologic: normal inspection, alert, oriented x3, responsive, card hand III-XII nml as tested, motor strength/tone normal, speech normal Psychiatric: normal inspection, judgement/insight normal, mood/affect normal Skin: well hydrated, incision c/d/i Prema Mathias M.D. Jun 22, 2016 18:42
[2016-06-22 20:00] VITALS: BP 121/69
[2016-06-23 08:00] VITALS: BP 138/70
[2016-06-23] MEDS: Cyclobenzaprine 10mg Tab ORAL SCH (08:26)
[2016-06-23] MEDS: Cephalexin 500mg cap ORAL SCH ×2 (08:26→12:26)
[2016-06-23] MEDS: Heparin 5000 units/ml inj SUBQ SCH ×2 (08:26→21:00)
[2016-06-23 12:00] VITALS: BP 116/73
--- NOTE | 2016-06-23 14:56 | Diagnostic Imaging Report ---
Indication: Chest pain Technique: Single portable AP view of the chest. Findings: Comparison: 05/21/16 Bilateral axillary skin noelle. PICC removed. The bones and extra pulmonary soft tissues, cardiomediastinal silhouette, pulmonary vasculature and parenchyma, and pleural surfaces otherwise unremarkable. IMPRESSION: Recent bilateral axillary surgery interval PICC removal Otherwise negative portable AP chest.
[2016-06-23 16:19] VITALS: BP 130/68
--- NOTE | 2016-06-23 18:02 | General Progress Note ---
Assessment/Plan Problem List: (1) abscess (2) Hydradenitis ICD Codes: L73.2 - Hidradenitis suppurativa SNOMED: 58648766 (3) PMS (premenstrual syndrome) ICD Codes: N94.3 - Premenstrual tension syndrome SNOMED: 684099, 14595621 (4) Macromastia ICD Codes: N62 - Hypertrophy of breast SNOMED: 532620295 Assessment/Plan Admit to inpatient - Blood cultures -wound cx with amp sensitive E. faecalis - Start IV abx, Cefazolin--> po Cephalexin--> Amoxicillin - Pain control - Surgical consult, Dr. Astudillo, pt s/p b/l axillary wound closure 06/17/16: Subjective Date patient seen: Jun 23, 2016 Time patient seen: 18:01 Allergies: Coded Allergies: TRAMADOL (Verified Allergy, Intermediate, 06/17/16) REACTION TO MED IS SWOLLEN LEG, NO SHORT OF BREATH CELECOXIB (Verified Allergy, Unknown, 05/11/16) Subjective no acute events Objective Last 24 Hour Vital Signs Date Time Temp Pulse Resp B/P Pulse Ox O2 Delivery O2 Flow Rate FiO2 06/23/16 16:19 97.9 84 18 130/68 100 Room Air 06/23/16 12:00 98.1 63 20 116/73 98 Room Air 06/23/16 09:25 97.9 06/23/16 08:00 97.9 82 20 138/70 96 Room Air 06/22/16 20:00 97.9 64 19 121/69 99 Room Air Intake and Output 06/22/16 06/23/16 19:00 07:00 Intake Total 240 ml 600 ml Balance 240 ml 600 ml Intake Oral 240 ml 600 ml # Voids 1 3 Laboratory Tests 06/22/16 18:15: White Blood Count 6.6, Red Blood Count 4.32, Hemoglobin 12.8, Hematocrit 38.4, Mean Corpuscular Volume 89, Mean Corpuscular Hemoglobin 29.7, Mean Corpuscular Hemoglobin Concent 33.4, Red Cell Distribution Width 12.2, Platelet Count 317, Mean Platelet Volume 6.4L, Neutrophils (%) (Auto) 43.5L, Lymphocytes (%) (Auto) 48.0H, Monocytes (%) (Auto) 4.7, Eosinophils (%) (Auto) 3.2H, Basophils (%) ( Auto) 0.6 Height (Feet): 5 Height (Inches): 5.00 Weight (Pounds): 190 Objective General Appearance: normal inspection, well appearing, no apparent distress, alert, GCS 15 Head: atraumatic ENT: normal ENT inspection, hearing grossly normal, normal voice Neck: normal inspection, full range of motion, supple, no bony tend Breast: macromastia b/l Respiratory: normal inspection, lungs clear, normal breath sounds, no respiratory distress, no retraction, no wheezing. TTP of posterior ribs on L Cardiovascular #1: regular rate, rhythm, no edema Gastrointestinal: normal inspection, normal bowel sounds, non tender, soft, no guarding, no hernia Genitourinary: no CVA tenderness Musculoskeletal: normal inspection, back normal, normal range of motion Neurologic: normal inspection, alert, oriented x3, responsive, tactical debriefer III-XII nml as tested, motor strength/tone normal, speech normal Psychiatric: normal inspection, judgement/insight normal, mood/affect normal Skin: well hydrated, incision c/d/i Prema Mathias M.D. Jun 23, 2016 18:02
[2016-06-23] MEDS: Amoxicillin 500mg cap ORAL SCH (19:21)
[2016-06-23 20:30] VITALS: BP 119/68
[2016-06-23] MEDS: Pericolace tab ORAL SCH (21:00)
[2016-06-24 04:00] VITALS: BP 120/74
[2016-06-24 08:00] VITALS: BP 122/79
[2016-06-24] MEDS: Amoxicillin 500mg cap ORAL SCH ×3 (08:19→17:59)
[2016-06-24] MEDS: Cyclobenzaprine 10mg Tab ORAL SCH (08:19)
[2016-06-24] MEDS: Heparin 5000 units/ml inj SUBQ SCH ×2 (08:19→21:37)
[2016-06-24] MEDS: Norco 5mg/325mg tab ORAL PRN (09:04)
--- NOTE | 2016-06-24 11:15 | General Progress Note ---
Assessment/Plan Problem List: (1) abscess (2) Hydradenitis ICD Codes: L73.2 - Hidradenitis suppurativa SNOMED: 41506739 (3) PMS (premenstrual syndrome) ICD Codes: N94.3 - Premenstrual tension syndrome SNOMED: 775546, 43450288 (4) Macromastia ICD Codes: N62 - Hypertrophy of breast SNOMED: 161394815 Assessment/Plan Admit to inpatient - Blood cultures -wound cx with amp sensitive E. faecalis - Start IV abx, Cefazolin--> po Cephalexin--> Amoxicillin - Pain control - Surgical consult, Dr. Astudillo, pt s/p b/l axillary wound closure 06/17/16: Subjective Date patient seen: Jun 24, 2016 Time patient seen: 11:14 Allergies: Coded Allergies: TRAMADOL (Verified Allergy, Intermediate, 06/17/16) REACTION TO MED IS SWOLLEN LEG, NO SHORT OF BREATH CELECOXIB (Verified Allergy, Unknown, 05/11/16) Subjective no acute events Objective Last 24 Hour Vital Signs Date Time Temp Pulse Resp B/P Pulse Ox O2 Delivery O2 Flow Rate FiO2 06/24/16 10:03 98.8 06/24/16 08:00 98.8 75 20 122/79 98 Room Air 06/24/16 04:00 97.2 78 19 120/74 98 Room Air 06/23/16 20:30 97.7 68 19 119/68 99 Room Air 06/23/16 16:19 97.9 84 18 130/68 100 Room Air 06/23/16 12:00 98.1 63 20 116/73 98 Room Air Intake and Output 06/23/16 06/24/16 19:00 07:00 Intake Total 700 ml 240 ml Output Total 0 ml Balance 700 ml 240 ml Intake Oral 700 ml 240 ml Output Urine Total 0 ml # Voids 2 2 # Bowel Movements 1 Height (Feet): 5 Height (Inches): 5.00 Weight (Pounds): 190 Objective General Appearance: normal inspection, well appearing, no apparent distress, alert, GCS 15 Head: atraumatic ENT: normal ENT inspection, hearing grossly normal, normal voice Neck: normal inspection, full range of motion, supple, no bony tend Breast: macromastia b/l Respiratory: normal inspection, lungs clear, normal breath sounds, no respiratory distress, no retraction, no wheezing. TTP of posterior ribs on L Cardiovascular #1: regular rate, rhythm, no edema Gastrointestinal: normal inspection, normal bowel sounds, non tender, soft, no guarding, no hernia Genitourinary: no CVA tenderness Musculoskeletal: normal inspection, back normal, normal range of motion Neurologic: normal inspection, alert, oriented x3, responsive, slitter helper III-XII nml as tested, motor strength/tone normal, speech normal Psychiatric: normal inspection, judgement/insight normal, mood/affect normal Skin: well hydrated, incision c/d/i Prema Mathias M.D. Jun 24, 2016 11:15
[2016-06-24 12:00] VITALS: BP 140/87
[2016-06-24] MEDS: Neosporin Oint 15gm TOPIC SCH ×2 (12:06→17:59)
[2016-06-24 16:09] VITALS: BP 133/88
[2016-06-24 20:00] VITALS: BP 122/71
[2016-06-25 08:00] VITALS: BP 122/73
[2016-06-25] MEDS: Cyclobenzaprine 10mg Tab ORAL SCH (08:25)
[2016-06-25] MEDS: Amoxicillin 500mg cap ORAL SCH ×3 (08:25→17:30)
[2016-06-25] MEDS: Neosporin Oint 15gm TOPIC SCH ×2 (08:25→17:37)
[2016-06-25] MEDS: Heparin 5000 units/ml inj SUBQ SCH ×2 (08:25→21:00)
[2016-06-25 12:00] VITALS: BP 110/57
--- NOTE | 2016-06-25 15:17 | General Progress Note ---
Assessment/Plan Problem List: (1) abscess (2) Hydradenitis ICD Codes: L73.2 - Hidradenitis suppurativa SNOMED: 37131740 (3) PMS (premenstrual syndrome) ICD Codes: N94.3 - Premenstrual tension syndrome SNOMED: 448748, 19009862 (4) Macromastia ICD Codes: N62 - Hypertrophy of breast SNOMED: 563662945 Assessment/Plan Admit to inpatient - Blood cultures -wound cx with amp sensitive E. faecalis - Start IV abx, Cefazolin--> po Cephalexin--> Amoxicillin - Pain control - Surgical consult, Dr. Astudillo, pt s/p b/l axillary wound closure 06/17/16: Subjective Date patient seen: Jun 25, 2016 Time patient seen: 15:16 Allergies: Coded Allergies: TRAMADOL (Verified Allergy, Intermediate, 06/17/16) REACTION TO MED IS SWOLLEN LEG, NO SHORT OF BREATH CELECOXIB (Verified Allergy, Unknown, 05/11/16) Subjective no acute events Objective Last 24 Hour Vital Signs Date Time Temp Pulse Resp B/P Pulse Ox O2 Delivery O2 Flow Rate FiO2 06/25/16 12:00 98.1 84 20 110/57 100 Room Air 06/25/16 08:00 98.4 79 20 122/73 99 Room Air 06/24/16 20:00 97.7 101 19 122/71 96 Room Air 06/24/16 16:09 98.1 97 19 133/88 98 Room Air Intake and Output 06/24/16 06/25/16 19:00 07:00 Intake Total 240 ml 740 ml Balance 240 ml 740 ml Intake Oral 240 ml 740 ml # Voids 1 4 Height (Feet): 5 Height (Inches): 5.00 Weight (Pounds): 190 Objective General Appearance: normal inspection, well appearing, no apparent distress, alert, GCS 15 Head: atraumatic ENT: normal ENT inspection, hearing grossly normal, normal voice Neck: normal inspection, full range of motion, supple, no bony tend Breast: macromastia b/l Respiratory: normal inspection, lungs clear, normal breath sounds, no respiratory distress, no retraction, no wheezing. TTP of posterior ribs on L Cardiovascular #1: regular rate, rhythm, no edema Gastrointestinal: normal inspection, normal bowel sounds, non tender, soft, no guarding, no hernia Genitourinary: no CVA tenderness Musculoskeletal: normal inspection, back normal, normal range of motion Neurologic: normal inspection, alert, oriented x3, responsive, gym instructor III-XII nml as tested, motor strength/tone normal, speech normal Psychiatric: normal inspection, judgement/insight normal, mood/affect normal Skin: well hydrated, incision c/d/i Prema Mathias M.D. Jun 25, 2016 15:17
[2016-06-25 16:06] VITALS: BP 133/91
[2016-06-25 20:00] VITALS: BP 127/78
[2016-06-26 08:00] VITALS: BP 125/50
[2016-06-26] MEDS: Amoxicillin 500mg cap ORAL SCH (09:00)
[2016-06-26] MEDS: Neosporin Oint 15gm TOPIC SCH (09:00)
[2016-06-26] MEDS: Heparin 5000 units/ml inj SUBQ SCH (09:00)
[2016-06-26] MEDS: Cyclobenzaprine 10mg Tab ORAL SCH (09:00)
[2016-06-26] MEDS ORDERED: NORCO 10-325 T1 EACH ORAL (09:23)
[2016-06-26] MEDS ORDERED: AMOXICILLI400 MG/5 M ORAL (09:23)
[2016-06-26] MEDS ORDERED: CYCLOBENZAPRINE10 MG ORAL (09:24)
[2016-06-26] MEDS ORDERED: NS 550ML IV ONE (09:29)
--- NOTE | 2016-06-26 18:34 | Discharge Summary ---
Discharge Summary Hospital Course Date of Admission Jun 16, 2016 at 12:14 Date of Discharge Jun 26, 2016 at 09:30 Admitting Diagnosis hidradenitis, wound infection HPI Rox Tejeda is a 25 year old female who was admitted on Jun 16, 2016 at 12: 14 for Hidradenitis, Wound Infection Consultations surgery Hospital Course Admitted to inpatient med surg -wound cx with amp sensitive E. faecalis - Start IV abx, Cefazolin--> po Cephalexin--> Amoxicillin - Pain control - Surgical consult, Dr. Astudillo, pt s/p b/l axillary wound closure 06/17/16 Discharge Medications Continued Medications: Amoxicillin (Amoxicillin) 400 Mg/5 Ml Susp.recon 500 MG ORAL THREE TIMES A DAY for 7 Days, ML Cyclobenzaprine Hcl* (Flexeril*) 10 Mg Tablet 10 MG ORAL BID for spasms, TAB Hydrocodone Bit/Acetaminophen 10-325* ([place] 10-325*) 1 Each Tablet 1 TAB ORAL Q6H PRN for For Pain, #10 TAB 0 Refills PRN PAIN Discharge Condition Upon Discharge: stable Discharge Disposition Patient was discharged to Home (01) Discharge Diagnoses: (1) abscess (2) Hydradenitis Prema Mathias M.D. Jun 26, 2016 18:34
== END 2016-06-26 09:30 | disposition home or self-care (01) | DRG 581 ==
LOC: EMR 11:25 → EDBEDREQ 12:07 → 4W 12:14 → EDBEDREQ 16:42 → 3E 06-17
PROC: 0JXD0ZZ Transfer Right Upper Arm Subcutaneous Tissue and Fascia, Open Approach (ICD-10-PCS; principal; 2016-06-16)
PROC: 0JX60ZZ Transfer Chest Subcutaneous Tissue and Fascia, Open Approach (ICD-10-PCS; principal; 2016-06-16)
DX: L02.412 Cutaneous abscess of left axilla (principal); N62 Hypertrophy of breast; L73.2 Hidradenitis suppurativa; L02.411 Cutaneous abscess of right axilla; N94.3 Premenstrual tension syndrome; Z88.8 Allergy status to other drugs, medicaments and biological substances
CPT/HCPCS: 36415; 71010; 80053; 81003; 82550; 82553; 83605; 84484; 85025; 87070; 87181; 87205; 93005; 94003; 94150; C9399; J2180; J2250; J2405

== ENCOUNTER 2016-07-06 07:07 | Inpatient (IN) | payer BC ==
[2016-07-06] VITALS (11 sets, daily range): BP systolic 119–155; BP diastolic 73–101
[~2016-07-06] VITALS: Ht 165.1 cm; Wt 85.3 kg
[~2016-07-06 07:07] MED LIST changes: +AMOXICILLI400 MG/5 M ORAL; +CYCLOBENZAPRINE10 MG ORAL; +NORCO 10-325 T1 EACH ORAL; +VENTOLIN HFA18 GM INH
[2016-07-06] MEDS ORDERED: Bacitracin 50000 Units Vial ONE (07:41)
[2016-07-06] MEDS ORDERED: Lidocaine 1% 10mg/ml/Epi 0.005mg/ml 30ml vial INJ ONE ×2 (07:41→13:19)
--- NOTE | 2016-07-06 08:15 | Pre-Procedure Note/Attestation ---
Pre-Procedure Note/Attestation Complete Prior to Procedure Planned Procedure: bilateral Procedure Narrative: Bilateral breast reduction and closure of axillary wounds and groin debridement Attestation I attest that I discussed the nature of the procedure; its benefits; risks and complications; and alternatives (and the risks and benefits of such alternatives ), prior to the procedure, with the patient (or the patient's legal client services representative). I attest that, if there was a reasonable possibility of needing a blood transfusion, the patient (or the patient's legal client services representative) was given the [facility] standardized written summary, pursuant to the [place] Blood Safety Act ([place] Health and Safety Code # 1645, as amended). I attest that I re-evaluated the patient just prior to the surgery and that there has been no change in the patient's H&P, except as documented below: NICOLE DRAKE Jul 06, 2016 08:15
[2016-07-06] MEDS ORDERED: Metoclopramide 10mg/2ml Inj IVP PRN (08:30)
[2016-07-06] MEDS ORDERED: Zolpidem 5mg tab ORAL PRN (08:30)
[2016-07-06] MEDS ORDERED: LR 1000ml ONE (08:30)
[2016-07-06] MEDS ORDERED: Neostigmine 1mg/ml 10ml Inj ONE (08:30)
[2016-07-06] MEDS ORDERED: fentaNYL 250mcg/5ml ONE (08:30)
[2016-07-06] MEDS ORDERED: Labetalol 5mg/ml 20ml vial IV ONE ×2 (08:30)
[2016-07-06] MEDS ORDERED: Midazolam 2mg/2ml Inj ONE (08:30)
[2016-07-06] MEDS ORDERED: Glycopyrrolate 0.2mg/ml 1ml Vial ONE (08:30)
[2016-07-06] MEDS ORDERED: Lidocaine 1% MPF 10mg/ml 5ml ONE (08:30)
[2016-07-06] MEDS ORDERED: NS Irrig 1000ml ONE (08:30)
[2016-07-06] MEDS ORDERED: Sterile Water Irrig 1000ml IRRIG ONE (08:30)
[2016-07-06] MEDS ORDERED: Propofol 10mg/ml 20ml IV ONE (08:30)
[2016-07-06] MEDS ORDERED: Ketamine 500mg Inj ONE (08:30)
[2016-07-06] MEDS ORDERED: Zemuron 50mg/5ml Inj IV ONE (08:30)
[2016-07-06] MEDS ORDERED: Hydromorphone 0.5mg/0.5ml inj IVP PRN (09:00)
[2016-07-06] MEDS ORDERED: Morphine Sulfate 2mg/ml Inj IV PRN (09:00)
[2016-07-06] MEDS ORDERED: Rate Change PCA 1 Each MISC PRN (09:00)
[2016-07-06] MEDS: Heparin 5000 units/ml inj SUBQ SCH ×2 (09:00→21:00)
--- NOTE | 2016-07-06 09:48 | Anethesia Preoperative Eval ---
Anesthesia Pre-op PMH/ROS General Date of Evaluation: Jul 06, 2016 Time of Evaluation: 08:30 Anesthesiologist: PARMJIT ASA Score: ASA 2 Mallampati Score Class I : Soft palate, uvula, fauces, pillars visible Class II: Soft palate, uvula, fauces visible Class III: Soft palate, base of uvula visible Class IV: Only hard plate visible Mallampati Classification: Class II Surgeon: VIDAL Diagnosis: BREAST ENLARGEMENT Surgical Procedure: BILAT BREEAST REDUCTION, BILAT AXILLARY I&D Anesthesia History: none Family History: no anesthesia problems Allergies: Coded Allergies: TRAMADOL (Verified Allergy, Intermediate, 06/17/16) REACTION TO MED IS SWOLLEN LEG, NO SHORT OF BREATH CELECOXIB (Verified Allergy, Unknown, 05/11/16) Medications: see eMAR Past Medical History Cardiovascular: Denies: CAD, HTN, PA, arrhythmia, other, valve dz Pulmonary: Reports: asthma Gastrointestinal/Genitourinary: Denies: CRI, ESRD, GERD, other Neurologic/Psychiatric: Denies: CVA, TIA, dementia, depression/anxiety, other Endocrine: Denies: DM, hypothyroidism, other, steroids HEENT: Denies: WAMP[place]OAG (L), WAMP[place]OAG (R), cataract (L), cataract (R), glaucoma, other Hematology/Immune: Denies: DVT, anemia, bleeding disorder, other Musculoskeletal/Integumentary: Denies: DDD, DJD, OA, RA, edema, other Other: obesity Anesthesia Pre-op Phys. Exam Physician Exam Last Vital Signs Date Time Temp Pulse Resp B/P Pulse Ox O2 Delivery O2 Flow Rate FiO2 07/06/16 07:46 98.3 73 18 136/73 99 Room Air Constitutional: NAD Neurologic: CN 2-12 intact Cardiovascular: RRR Respiratory: CTA Gastrointestinal: S/NT/ND Airway Exam Mallampati Score: Class II MO: full ROM: full Teeth: intact Dentures: no lower, no upper Anesthesia Pre-op A/P Labs Urine Test Test 07/06/16 07:25 Urine HCG, Qualitative Negative Risk Assessment & Plan Assessment: ASA2 Plan: GET Status Change Before Surgery: No Pre-Antibiotics Drug: ANCEF Given Within 1 Hr of Incision: Yes Time Given: 09:00 GAUTAM PARNELL M.D. Jul 06, 2016 09:48
--- NOTE | 2016-07-06 09:50 | Immediate Post-Op Evaluation ---
GAUTAM PARNELL M.D. 07/06/16 0950: Immediate Post-Op Evalulation Immediate Post-Op Evalulation Procedure: BILAT BREAST REDUCTION, BILAT AXILLARY I&D Date of Evaluation: Jul 06, 2016 Time of Evaluation: 13:00 IV Fluids: 1500 Blood Products: 0 Estimated Blood Loss: 0 Urinary Output: 0 Blood Pressure Systolic: 123 Blood Pressure Diastolic: 77 Pulse Rate: 65 Respiratory Rate: 14 O2 Sat by Pulse Oximetry: 99 Temperature (Fahrenheit): 98 Pain Score (1-10): 2 Nausea: No Vomiting: No Patient Status: awake, patent, none Hydration Status: adequate Drug: ANCEF Given Within 1 Hr of Incision: Yes Time Given: 09:00 JEANNIE MIGUEL M.D. 07/06/16 1346: Immediate Post-Op Evalulation Immediate Post-Op Evalulation Procedure: Bilateral breast reduction Date of Evaluation: Jul 06, 2016 Time of Evaluation: 13:47 IV Fluids: 3L Blood Products: 0 Estimated Blood Loss: min Urinary Output: 250 Blood Pressure Systolic: 128 Blood Pressure Diastolic: 75 Pulse Rate: 119 Respiratory Rate: 19 O2 Sat by Pulse Oximetry: 100 Temperature (Fahrenheit): 98.8 Pain Score (1-10): 0 Nausea: No Vomiting: No Complications 0 Patient Status: awake, reacts, none Hydration Status: adequate Drug: Ancef 2g Given Within 1 Hr of Incision: Yes Time Given: 09:00 GAUTAM PARNELL M.D. Jul 06, 2016 09:50 JEANNIE MIGUEL M.D. Jul 06, 2016 13:46
[2016-07-06] MEDS ORDERED: Bacitracin 50000 Units Vial IRRIG ONE (10:00)
--- NOTE | 2016-07-06 13:45 | Operative Note - PDOC ---
Operative Note Operative Note Procedure: Bilateral breast reduction Surgeon: Wilda [employer] Clerk: Patrick Anesthesia: general Specimen: yes Complications: none Estimated Blood Loss: volume - 50 Drains: JOSEPHINE Implant(s) used?: No NICOLE DRAKE Jul 06, 2016 13:45
[2016-07-06] MEDS ORDERED: Ipratropium 0.02% Inh Soln 2.5ml UD HHN ONE (14:15)
[2016-07-06] MEDS: PCA Morphine 1mg/ml 30 ML IV PRN ×2 (14:35→21:57)
[2016-07-06] MEDS: PCA shift volume MISC SCH ×2 (15:00→23:24)
[2016-07-06] MEDS: ceFAZolin sod 1 GM in D5W 55 ML IVPB SCH (18:18)
--- NOTE | 2016-07-06 22:27 | Operative Note - Dictated ---
PREOPERATIVE DIAGNOSES: 1. Bilateral macromastia. 2. Bilateral axillary wound. 3. Right groin abscess. 4. Mons abscess. POSTOPERATIVE DIAGNOSES: 1. Bilateral macromastia. 2. Bilateral axillary wound. 3. Right groin abscess. 4. Mons abscess. PROCEDURES: 1. Debridement of left axilla. 2. Debridement of right axilla. 3. Flap readvancement closure of left axilla. 4. Flap readvancement closure of right axilla. 5. Bilateral breast reduction using the inferior pedicle technique Velez pattern. 6. Right groin debridement with complex closure. 7. Mons debridement and complex closure. SURGEON: Fina Astudillo M.D. SPRAY MACHINE LOADER: Laci Nguyen M.D. ANESTHESIA: General. COMPLICATIONS: None. SPECIMEN: Included bilateral breast tissue right side 440 grams, left side was 520 grams. DRAINS: Included 215 JOSEPHINE in each breast. DISPOSITION: Stable to the recovery room. INDICATIONS FOR SURGERY: This is a 25-year-old, -[place] female, well known to ca, who has previously undergone axillary reconstruction and has been doing well. However, she has had an axillary wound dehiscence on both sides and also has been dealing with significant neck and shoulder pain secondary to bilaterally enlarged breast and has been authorized to undergo breast reduction. She understood the risks and benefits of surgery and agreed to proceed. DETAILS OF THE OPERATION: The patient was brought to the operating room and laid supine on the operating table. Her bilateral axilla, chest and groins were prepped and draped in a sterile usual fashion. We first began by debriding the open wound region of the left axilla. Once this was done, the medial chest wall flap that had been previously elevated was readvanced to the same tissue plane level with perforators off the thoracoacromial artery perfusing this flap and once this was fully mobilized, the wound was copiously irrigated and the flap was readvanced and closed with 0 and 2-0 Vicryl sutures and 2-0 Prolene for the skin. We then turned our attention to the contralateral right axillary wound in a similar fashion. The wound was debrided down to healthy tissue and the previously raised medial to small flap was readvanced to the same tissue plane with perforators off the thoracoacromial artery feeding this flap, and wound was closed using 0 and 2-0 Vicryl sutures and 2-0 Prolene for the skin. Preoperatively, the patient was marked for bilateral breast reduction using an inferior pedicle Velez pattern technique. With this done, we began using the [employer] cutter to lainey out the needle with the new nipple areolar dimensions and we then proceeded first on the right side to de-epithelialize the inferior pedicle. Once the pedicle was de-epithelialized, the medial and lateral triangular skin wedges, which were preoperatively marked were excised and the pedicle was then fully mobilized down to the chest wall level. The superior breast tissue was then fully mobilized off the chest wall. The keyhole pattern above the pedicle was then excised. With this done, we proceeded to measure the total volume on the right side it was 440 grams removed. The pedicle was then inset and the breast was tailor tacked closed to assess the shape. Before committing to a size we then went to the contralateral breast and in a similar fashion the left breast was de-epithelialized and the triangular medial and lateral wedges were excised. The skin flaps above the pedicle were elevated at the level of the pectoralis fascia and with this done the pedicle was then inset and tailor tacked closed and the size measures 520 grams of tissue removed. With the head of the bed then placed up we noted there was good symmetry and there was no need for further removal of tissue on either side. We then proceeded to remove all of the tailor tacked noelle. Both breast wounds were copiously irrigated. We began closure of the breast wound. We first did it to close the right breast wound over a 15 JOSEPHINE drain. The vertical limb was brought together as was the transverse inferior limb. The sutures used for this were 0 and 2-0 Vicryl sutures. The nipple was inset using 2-0 Vicryl sutures and the skin was closed using 3-0 Monocryl for the vertical limb and the transverse limb and a baseball 5-0 Prolene stitch was used to close the nipple-areolar complex. This exact methadone closure was pursued on the contralateral left breast. Of note, we also anchored inferior pedicle with fascial sutures of the pectoralis fascia using 0 Vicryl suture superiorly, medially, and laterally to prevent the risk of bottoming out of the breast by being able to anchor the pedicle and the breast tissue at that level. With the bilateral breast reconstruction completed we then turned our attention to the wound and the mons and the right groin. Elliptical incisions were made about around both wounds and the tissue was excised down to the subcutaneous fat and once debridement was completed, both wounds were closed in a complex closure fashion using 0 Vicryl sutures and 2-0 Vicryl for the dermis and 2-0 Prolene was used to close the skin. The patient tolerated the procedure well. There were no complications. Fina Astudillo M.D. DR: ANNI JOB#: [id number] CC:
[2016-07-06] MEDS: DiphenhydrAMINE 50mg/ml Inj IVP PRN (22:55)
[2016-07-07] MEDS: ceFAZolin sod 1 GM in D5W 55 ML IVPB SCH ×3 (01:09→19:37)
[2016-07-07] MEDS: PCA shift volume MISC SCH ×3 (07:28→23:14)
[2016-07-07 08:00] VITALS: BP 153/89
[2016-07-07] MEDS: Heparin 5000 units/ml inj SUBQ SCH ×2 (08:27→21:36)
[2016-07-07] MEDS: DiphenhydrAMINE 50mg/ml Inj IVP PRN ×2 (10:12→19:36)
[2016-07-07] MEDS: PCA Morphine 1mg/ml 30 ML IV PRN (10:28)
[2016-07-07] MEDS: Morphine Sulfate 4mg/ml Inj SUBQ PRN (10:31)
--- NOTE | 2016-07-07 11:00 | General Progress Note ---
Progress Note Progress Note Pt seen and examined. POD# 1 and doing well. Drains with SS output. Will take down dressing in 2 days. NICOLE Sharma MD Jul 07, 2016 11:00
[2016-07-07 12:30] VITALS: BP 131/74
--- NOTE | 2016-07-07 13:57 | History and Physical ---
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 Allergies: Coded Allergies: TRAMADOL (Verified Allergy, Intermediate, 06/17/16) REACTION TO MED IS SWOLLEN LEG, NO SHORT OF BREATH CELECOXIB (Verified Allergy, Unknown, 05/11/16) HYDROMORPHONE (Verified Allergy, Unknown, 07/06/16) Medication History Scheduled Albuterol Sulfate (Ventolin Hfa), 1 PUFF INH EVERY 6 HOURS, (Reported) Scheduled PRN Acetamin/Butalbital/Caffeine* (Fioricet*), 1 TAB ORAL Q6H PRN for For Headache, (Reported) Hydrocodone Bit/Acetaminophen 5-325* ([place] 5-325*), 2 TAB ORAL Q6H PRN for For Pain, (Reported) Discontinued Medications Amoxicillin (Amoxicillin), 500 MG ORAL THREE TIMES A DAY, (Reported) Discontinued Reason: MD discontinued med Cephalexin* (Keflex*), 500 MG ORAL EVERY 6 HOURS, (Reported) Discontinued Reason: MD discontinued med Cyclobenzaprine Hcl* (Flexeril*), 10 MG ORAL BID, (Reported) Discontinued Reason: Pt stopped taking med Fluticasone/Salmeterol (Advair 250-50 Diskus), 1 PUFF INH EVERY 12 HOURS, ( Reported) Discontinued Reason: Pt stopped taking med Ondansetron* (Zofran*), 4 MG ORAL Q6H PRN for Nausea & Vomiting, (Reported) Discontinued Reason: Pt stopped taking med Patient History Healthcare decision maker N Resuscitation status Full Code Advanced Directive on File Past Medical/Surgical History Past Medical/Surgical History: (1) Inguinal abscess (2) Hydradenitis (3) Macromastia Family History Family History: Patient reports no known family medical history. Social History Social History: (1) No significant social history Review of Systems All Other Systems: negative except mentioned in HPI Physical Exam General Appearance: no apparent distress, alert HEENT: normocephalic, atraumatic, anicteric, mucous membranes moist, PERRL, EOMI, pharynx normal, no JVD Neck: non-tender, supple Respiratory/Chest: lungs clear, normal breath sounds, no respiratory distress, no accessory muscle use Breasts: other - b/l macromastia Cardiovascular/Chest: normal peripheral pulses, normal rate, regular rhythm Abdomen: normal bowel sounds, non tender, soft, no mass Extremities: non-tender, normal inspection Skin Exam: warm/dry Neurologic: operations section manager II-XII grossly normal, no motor/sensory deficits, alert Musculoskeletal: normal muscle bulk Last 24 Hour Vital Signs Date Time Temp Pulse Resp B/P Pulse Ox O2 Delivery O2 Flow Rate FiO2 07/07/16 12:49 100.4 07/07/16 12:30 99.1 125 18 131/74 100 Room Air 07/07/16 12:00 18 07/07/16 12:00 100.4 07/07/16 11:01 99.0 07/07/16 10:58 99.0 07/07/16 08:00 18 07/07/16 08:00 99.0 125 18 153/89 100 Room Air 07/07/16 04:00 16 07/07/16 00:00 16 07/06/16 21:57 15 07/06/16 20:34 15 07/06/16 20:00 99.1 110 20 119/91 99 Room Air 07/06/16 16:30 15 07/06/16 16:00 98.2 112 19 146/96 98 Room Air 07/06/16 15:20 15 07/06/16 15:05 13 07/06/16 15:00 98.7 95 16 146/95 100 Nasal Cannula 3.0 07/06/16 14:50 12 07/06/16 14:50 98.8 07/06/16 14:45 98 15 151/97 100 Nasal Cannula 3.0 07/06/16 14:35 92 13 155/95 100 Nasal Cannula 3.0 07/06/16 14:35 18 07/06/16 14:20 94 18 148/100 100 Simple Mask 6.0 07/06/16 14:05 105 14 153/101 100 Simple Mask 6.0 Intake and Output 07/06/16 07/07/16 19:00 07:00 Intake Total 1155 ml 480 ml Output Total 95 ml 560 ml Balance 1060 ml -80 ml Intake Oral 480 ml IV Total 1155 ml Output Urine Total 500 ml Drainage Total 45 ml 60 ml Estimated Blood Loss 50 ml # Voids 1 # Bowel Movements 2 Height (Feet): 5 Height (Inches): 5.00 Weight (Pounds): 188 Medications Current Medications Medications (Trade) Dose Ordered Sig/Kourtney Route PRN Reason Start Time Stop Time Status Last Admin Dose Admin Acetaminophen 650 mg 650 mg Q4H PRN ORAL FEVER 07/06/16 08:30 08/05/16 08:29 07/07/16 11:50 Cefazolin Sodium/ Dextrose (Ancef/D5W) 55 ml @ 110 mls/hr Q8HR@0200,1000,1800 IVPB 07/06/16 18:00 07/13/16 17:59 07/07/16 08:23 Cetylpyridinium Chloride (Cepacol) 1 lozenge Q2H PRN SUJEY SORE THROAT 07/06/16 16:30 08/05/16 16:29 07/07/16 08:22 Diphenhydramine HCl 50 mg 50 mg Q6H PRN IVP Itching 07/06/16 16:30 08/05/16 16:29 07/07/16 10:12 Heparin Sodium (Porcine) (Heparin 5000 units/ml) 5,000 units EVERY 12 HOURS SUBQ 07/06/16 09:00 08/05/16 08:59 07/07/16 08:27 Metoclopramide HCl (Reglan) 10 mg Q6H PRN IVP Nausea & Vomiting 07/06/16 08:30 08/05/16 08:29 07/07/16 02:01 Miscellaneous Medication (SELF PAY SPECIALIST Rate Change) 1 ea DAILY PRN MISC rate change 07/06/16 09:00 07/08/16 08:59 Miscellaneous Medication (SELF PAY SPECIALIST shift volume) 1 ea Q8HR@07,15,23 MISC 07/06/16 15:00 07/08/16 14:59 07/07/16 07:28 Morphine Sulfate (Morphine Sulfate) 2 mg Q2H PRN IV Moderate Pain (Pain Scale 4-6) 07/06/16 09:00 07/08/16 08:59 Morphine Sulfate (Morphine Sulfate) 4 mg Q3H PRN SUBQ Severe Pain (Pain Scale 7-10) 07/06/16 09:00 07/08/16 08:59 07/07/16 10:31 Morphine Sulfate (SELF PAY SPECIALIST Morphine) 30 ml @ 0 mls/hr Q24H PRN IV For Pain 07/06/16 09:00 07/08/16 08:59 07/07/16 10:28 Naloxone HCl (Narcan) 0.1 mg PRN IV . 07/06/16 09:00 07/08/16 08:59 Ondansetron HCl (Zofran) 4 mg Q6H PRN IVP Nausea & Vomiting 07/06/16 08:30 08/05/16 08:29 07/06/16 21:37 Zolpidem Tartrate (Ambien) 5 mg DAILYPRN PRN ORAL Insomnia 07/06/16 08:30 08/05/16 08:29 Assessment/Plan Problem List: (1) Pleuritic pain ICD Codes: R07.81 - Pleurodynia SNOMED: 2157903 (2) abscess (3) Macromastia ICD Codes: N62 - Hypertrophy of breast SNOMED: 259424494 (4) Hydradenitis ICD Codes: L73.2 - Hidradenitis suppurativa SNOMED: 05954911 (5) Inguinal abscess ICD Codes: L02.214 - Cutaneous abscess of groin SNOMED: 10256396 Status: progressing Assessment/Plan Admit to inpatient med/surg - Blood cultures - labs - Start IV abx - Pain control - Surgical consult for breast reduction surgery If patient is required to have surgery, based on the patient's medical history, and other available ancillary data, the patient is a LOW risk for an INTERMEDIATE risk procedure. Per the most recent ACC/AHA guidelines, the patient does not need any further cardiopulmonary testing prior to the procedure and there do not appear to be any clear medical contraindications to proceeding with the proposed procedure Prema Mathias M.D. Jul 07, 2016 13:57
--- NOTE | 2016-07-07 15:00 | 48 Hour Post Anesthesia Eval ---
Post Anesthesia Evaluation Procedure: Bilateral breast reduction Date of Evaluation: Jul 07, 2016 Time of Evaluation: 08:00 Blood Pressure Systolic: 153 0: 89 Pulse Rate: 125 Respiratory Rate: 18 Temperature (Fahrenheit): 99 O2 Sat by Pulse Oximetry: 100 Airway: patent Nausea: No Vomiting: No Pain Intensity: 3 Hydration Status: adequate Cardiopulmonary Status: at baseline Mental Status/LOC: patient returned to baseline Post-Anesthesia Complications: 0 Follow-up care needed: N/A - further care as per primary team JEANNIE MIGUEL M.D. Jul 07, 2016 15:00
[2016-07-07] MEDS ORDERED: Norco 5mg/325mg tab ORAL PRN ×2 (15:45)
[2016-07-07] MEDS ORDERED: Norco 7.5mg/325mg tab ORAL PRN (15:45)
[2016-07-07 16:01] VITALS: BP 115/70
[2016-07-07] MEDS ORDERED: Norco 10mg/325mg tab ORAL PRN (18:15)
[2016-07-07 20:00] VITALS: BP 120/74
[2016-07-07 21:43] LABS: APPEARANCE,URINE CLEAR; KETONES,URINE 2+ (NEGATIVE); LEUKOCYTE ESTERASE ,URINE NEGATIVE (NEGATIVE); NITRITE,URINE NEGATIVE (NEGATIVE); PH,URINE 5 (4.5-8.0); PROTEIN,URINE NEGATIVE (NEGATIVE); UROBILINOGEN,URINE NORMAL MG/DL (0.0-1.0)
[2016-07-07 22:01] LABS: RBC,URINE 0-2 /HPF (0 - 2)
[2016-07-07 22:02] LABS: SQUAMOUS EPITHELIAL CELL,UR OCCASIONAL /LPF (NONE/OCC); WBC,URINE 0-2 /HPF (0 - 2)
[2016-07-07 22:03] LABS: BACTERIA,URINE OCCASIONAL /HPF
[2016-07-08 00:29] VITALS: BP 128/72
[2016-07-08] MEDS: ceFAZolin sod 1 GM in D5W 55 ML IVPB SCH ×3 (01:57→17:05)
[2016-07-08] MEDS: Morphine Sulfate 4mg/ml Inj SUBQ PRN (06:01)
[2016-07-08] MEDS: PCA shift volume MISC SCH (06:59)
[2016-07-08 08:16] VITALS: BP 112/61
--- NOTE | 2016-07-08 09:27 | Diagnostic Imaging Report ---
APPROVED REPORT CPT Code: 57411 Present Symptoms Upper Extremity Pain: Right RIGHT UPPER EXTREMITY: Venous imaging reveals patency of the internal jugular, subclavian, axillary and brachial veins. The cephalic and basilic veins are also patent. Doppler indicates normal spontaneous flow within these venous segments.
[2016-07-08 09:46] LABS: BASOPHILS % (AUTO) 0.6 % (0.0-2.0); LYMPHOCYTES % (AUTO) 24.1 % (20.0-45.0); MEAN CORPUSCULAR HEMOGLOBIN 30.4 PG (27.0-31.0); MEAN CORPUSCULAR HGB CONC 34.4 G/DL (32.0-36.0); MEAN CORPUSCULAR VOLUME 88 FL (80-99); MEAN PLATELET VOLUME 7.9 FL (6.5-10.1); MONOCYTES % (AUTO) 5.4 % (1.0-10.0); PLATELET COUNT 251 K/UL (150-450); RED BLOOD COUNT 3.05 M/UL (4.20-5.40); RED CELL DISTRIBUTION WIDTH 11.9 % (11.6-14.8); WHITE BLOOD COUNT 9.6 K/UL (4.8-10.8)
[2016-07-08 10:03] LABS: ALANINE AMINOTRANSFERASE 5 U/L (3-33); ALBUMIN/GLOBULIN RATIO 1.3 (1.0-2.7); ANION GAP 13 (5-15); ASPARTATE AMINO TRANSFERASE 10 U/L (5-40); CALCIUM 8.8 mg/dL (8.6-10.2); CARBON DIOXIDE 25 mEQ/L (20-30); CHLORIDE 99 mEQ/L (98-107); CREATININE 0.7 mg/dL (0.5-0.9); GLOMERULAR FILTRATION RATE > 60 mL/min (>60); HEMOLYSIS 0; POTASSIUM 3.3 mEQ/L (3.4-4.9); SODIUM 137 mEQ/L (135-145); TOTAL PROTEIN 5.8 g/dL (6.6-8.7)
[2016-07-08] MEDS: Heparin 5000 units/ml inj SUBQ SCH ×2 (10:05→21:00)
[2016-07-08] MEDS: DuoNeb 0.5-3(2.5)mg/3ml neb HHN SCH ×4 (11:20→22:37)
[2016-07-08 11:31] VITALS: BP 109/65
--- NOTE | 2016-07-08 14:24 | Diagnostic Imaging Report ---
Indication: Chest pain Technique: One view of the chest Comparison: 06/16/2016 Findings: Lungs and pleural spaces are clear. Heart size is normal. Impression: No acute process
--- NOTE | 2016-07-08 15:37 | General Progress Note ---
Assessment/Plan Problem List: (1) Pleuritic pain ICD Codes: R07.81 - Pleurodynia SNOMED: 8099703 (2) abscess (3) Macromastia ICD Codes: N62 - Hypertrophy of breast SNOMED: 300790877 (4) Hydradenitis ICD Codes: L73.2 - Hidradenitis suppurativa SNOMED: 63830699 (5) Inguinal abscess ICD Codes: L02.214 - Cutaneous abscess of groin SNOMED: 79466488 (6) Bronchitis ICD Codes: J40 - Bronchitis, not specified as acute or chronic SNOMED: 33505437 Status: progressing Assessment/Plan Admit to inpatient med/surg - Blood cultures - labs - Start IV abx - Pain control - S/p breast reduction surgery 07/06/16 -CXR with no acute findings - IVF Subjective Date patient seen: Jul 08, 2016 Time patient seen: 15:35 Allergies: Coded Allergies: TRAMADOL (Verified Allergy, Intermediate, 06/17/16) REACTION TO MED IS SWOLLEN LEG, NO SHORT OF BREATH CELECOXIB (Verified Allergy, Unknown, 05/11/16) HYDROMORPHONE (Verified Allergy, Unknown, 07/06/16) Subjective pt with f/c since yesterday after surgery; +productive cough--brown colored sputum. pt endorses that she had 2 asthma exacerbations last year. No dysuria and no LE swelling. not using IS consistently Objective Last 24 Hour Vital Signs Date Time Temp Pulse Resp B/P Pulse Ox O2 Delivery O2 Flow Rate FiO2 07/08/16 11:33 115 18 97 Room Air 07/08/16 11:32 113 18 98 Room Air 07/08/16 11:31 98.2 115 20 109/65 97 Room Air 07/08/16 10:05 98.4 07/08/16 08:16 98.4 111 20 112/61 97 Room Air 07/08/16 08:00 18 07/08/16 06:59 99.0 07/08/16 04:00 18 07/08/16 00:29 98.8 117 20 128/72 98 Room Air 07/08/16 00:00 18 07/07/16 20:00 100.0 125 20 120/74 94 Room Air 07/07/16 20:00 18 07/07/16 16:01 98.6 130 20 115/70 99 Room Air 07/07/16 16:00 18 Intake and Output 07/07/16 07/08/16 19:00 07:00 Intake Total 840 ml 405 ml Output Total 30 ml 30 ml Balance 810 ml 375 ml Intake Oral 840 ml 240 ml IV Total 165 ml Drainage Total 30 ml 30 ml # Voids 3 5 Laboratory Tests 07/07/16 20:00: Urine Color Pale yellow, Urine Appearance Clear, Urine pH 5, Urine Specific [place] 1.015, Urine Protein Negative, Urine Glucose (UA) Negative, Urine Ketones 2+H, Urine Occult Blood Negative, Urine Nitrite Negative, Urine Bilirubin Negative, Urine Urobilinogen Normal, Urine Leukocyte Esterase Negative , Urine RBC 0-2, Urine WBC 0-2, Urine Squamous Epithelial Cells Occasional, Urine Bacteria Occasional 07/08/16 09:15: White Blood Count 9.6, Red Blood Count 3.05L, Hemoglobin 9.2L, Hematocrit 26.9L , Mean Corpuscular Volume 88, Mean Corpuscular Hemoglobin 30.4, Mean Corpuscular Hemoglobin Concent 34.4, Red Cell Distribution Width 11.9, Platelet Count 251, Mean Platelet Volume 7.9, Neutrophils (%) (Auto) 68.0, Lymphocytes (% ) (Auto) 24.1, Monocytes (%) (Auto) 5.4, Eosinophils (%) (Auto) 2.0, Basophils ( %) (Auto) 0.6, Sodium Level 137, Potassium Level 3.3L, Chloride Level 99, Carbon Dioxide Level 25, Anion Gap 13, Blood Urea Nitrogen 5L, Creatinine 0.7, Estimat Glomerular Filtration Rate > 60, Glucose Level 107H, Calcium Level 8.8, Iron Level 11L, Total Bilirubin 0.3, Aspartate Amino Transf (AST/SGOT) 10, Alanine Aminotransferase (ALT/SGPT) 5, Alkaline Phosphatase 47, Total Protein 5.8L, Albumin 3.3L, Globulin 2.5, Albumin/Globulin Ratio 1.3 Height (Feet): 5 Height (Inches): 5.00 Weight (Pounds): 188 Objective General Appearance: no apparent distress, alert HEENT: normocephalic, atraumatic, anicteric, mucous membranes moist, PERRL, EOMI, pharynx normal, no JVD Neck: non-tender, supple Respiratory/Chest: lungs clear, normal breath sounds, no respiratory distress, no accessory muscle use Cardiovascular/Chest: normal peripheral pulses, normal rate, regular rhythm Abdomen: normal bowel sounds, non tender, soft, no mass Extremities: non-tender, normal inspection Skin Exam: warm/dry and intact Neurologic: aerospace manager II-XII grossly normal, no motor/sensory deficits, alert Musculoskeletal: normal muscle bulk Prema Mathias M.D. Jul 08, 2016 15:37
[2016-07-08 16:49] VITALS: BP 106/53
[2016-07-08] MEDS ORDERED: Morphine Sulfate 2mg/ml Inj IM ONE (17:15)
[2016-07-08] MEDS: Morphine Sulfate 2mg/ml Inj IVP PRN (19:25)
[2016-07-08] MEDS ORDERED: Norco 5mg/325mg tab ORAL PRN (19:45)
[2016-07-08 20:34] VITALS: BP 106/60
[2016-07-09] MEDS: Norco 7.5mg/325mg tab ORAL PRN ×2 (00:13→09:15)
[2016-07-09] MEDS: ceFAZolin sod 1 GM in D5W 55 ML IVPB SCH (01:43)
[2016-07-09] MEDS: DuoNeb 0.5-3(2.5)mg/3ml neb HHN SCH ×2 (02:44→07:40)
[2016-07-09 04:00] VITALS: BP 130/79
[2016-07-09] MEDS: Morphine Sulfate 2mg/ml Inj IVP PRN (05:45)
[2016-07-09 08:13] VITALS: BP 127/78
[2016-07-09] MEDS ORDERED: NORCO 10-325 T1 EACH ORAL (08:29)
[2016-07-09] MEDS ORDERED: LEVAQUIN750 MG ORAL (08:29)
[2016-07-09] MEDS ORDERED: ALBUTEROL2.5 MG/3 M INH (08:31)
[2016-07-09] MEDS: Heparin 5000 units/ml inj SUBQ SCH (09:00)
[2016-07-09] MEDS ORDERED: Tubing IV Secondary IV ONE (10:10)
[2016-07-09] MEDS ORDERED: NS 275ml ONE (10:10)
--- NOTE | 2016-07-09 10:20 | Discharge Summary ---
Discharge Summary Hospital Course Date of Admission Jul 06, 2016 at 16:08 Date of Discharge 07/09/16 Admitting Diagnosis HPI Rox Tejeda is a 25 year old female who was admitted on Jul 06, 2016 at 16: 08 for Macromastia Consultations surgery Hospital Course Admitted to inpatient med/surg - IV abx - Pain control - S/p breast reduction surgery 07/06/16 -post op tachycardia and productive cough with low grade fever--CXR with no acute findings; pt received IS and nebs and IVF with improvement Discharge Medications Continued Medications: Albuterol Sulfate* (Albuterol Sulfate Hhn*) 2.5 Mg/3 Ml Vial.neb 3 ML INH QID PRN for Shortness of Breath, #30 EA Hydrocodone Bit/Acetaminophen 10-325* ([place] 10-325*) 1 Each Tablet 1 TAB ORAL Q4H PRN for For Pain, #30 TAB 0 Refills PRN PAIN Levofloxacin* (Levaquin*) 750 Mg Tablet 750 MG ORAL DAILY, TAB Discontinued Medications: Acetamin/Butalbital/Caffeine* (Fioricet*) 1 Ea Tab 1 TAB ORAL Q6H PRN for For Headache, #15 TAB 0 Refills Albuterol Sulfate (Ventolin Hfa) 18 Gm Hfa.aer.ad 1 PUFF INH EVERY 6 HOURS, #18 GM 0 Refills Hydrocodone Bit/Acetaminophen 5-325* ([place] 5-325*) 1 Each Tablet 2 TAB ORAL Q6H PRN for For Pain, #30 TAB 0 Refills Discharge Condition Upon Discharge: stable Discharge Disposition Patient was discharged to Home (01) Discharge Diagnoses: (1) Macromastia (2) Hydradenitis (3) Pleuritic pain (4) Bronchitis Prema Mathias M.D. Jul 09, 2016 10:20
[2016-07-10 07:45] VITALS: BP 123/77
== END 2016-07-09 10:11 | disposition home or self-care (01) | DRG 571 ==
LOC: SUR 07:07 → 3E 16:08
PROC: 0JQC0ZZ Repair Pelvic Region Subcutaneous Tissue and Fascia, Open Approach (ICD-10-PCS; principal; 2016-07-06 08:30)
PROC: 0HBV0ZZ Excision of Bilateral Breast, Open Approach (ICD-10-PCS; principal; 2016-07-06 08:30)
PROC: 0JBC0ZZ Excision of Pelvic Region Subcutaneous Tissue and Fascia, Open Approach (ICD-10-PCS; principal; 2016-07-06 08:30)
PROC: 0JQ60ZZ Repair Chest Subcutaneous Tissue and Fascia, Open Approach (ICD-10-PCS; principal; 2016-07-06 08:30)
PROC: 0JD60ZZ Extraction of Chest Subcutaneous Tissue and Fascia, Open Approach (ICD-10-PCS; principal; 2016-07-06 08:30)
DX: N62 Hypertrophy of breast (principal); T81.31XA Disruption of external operation (surgical) wound, not elsewhere classified, initial encounter; L02.214 Cutaneous abscess of groin; R07.81 Pleurodynia; L73.2 Hidradenitis suppurativa; R00.0 Tachycardia, unspecified; J40 Bronchitis, not specified as acute or chronic
CPT/HCPCS: 36415; 71010; 80053; 81001; 81025; 82962; 83540; 85025; 87040; 93971; 94003; 94150; 94644; J2250; J2405; J2710; J2765; J7620; J8499

== ENCOUNTER 2016-07-28 12:43 | Inpatient (IN) | payer BC ==
[~2016-07-28] VITALS: Ht 165.1 cm; Wt 82.6 kg
[~2016-07-28 12:43] MED LIST changes: +ALBUTEROL2.5 MG/3 M INH; +LEVAQUIN750 MG ORAL
[2016-07-28] MEDS ORDERED: Ketorolac 30mg Inj IV ONE (13:45)
--- NOTE | 2016-07-28 14:25 | Diagnostic Imaging Report ---
Indication: Chest pain Technique: One view of the chest Comparison: 07/08/2016 Findings: Lungs and pleural spaces are clear. Heart size is normal . No significant interim change Impression: No acute process
[2016-07-28 14:31] VITALS: BP 110/62
[2016-07-28 14:32] LABS: APPEARANCE,URINE SLIGHTLY CLOUDY; BASOPHILS % (AUTO) 1.1 % (0.0-2.0); EOSINOPHILS % (AUTO) 2.2 % (0.0-3.0); KETONES,URINE NEGATIVE (NEGATIVE); LEUKOCYTE ESTERASE ,URINE NEGATIVE (NEGATIVE); LYMPHOCYTES % (AUTO) 51.2 % (20.0-45.0); MEAN CORPUSCULAR HEMOGLOBIN 26.9 PG (27.0-31.0); MEAN CORPUSCULAR HGB CONC 31.6 G/DL (32.0-36.0); MEAN CORPUSCULAR VOLUME 85 FL (80-99); MEAN PLATELET VOLUME 7.1 FL (6.5-10.1); MONOCYTES % (AUTO) 6.4 % (1.0-10.0); NEUTROPHILS % (AUTO) 39.2 % (45.0-75.0); NITRITE,URINE NEGATIVE (NEGATIVE); PH,URINE 5 (4.5-8.0); PLATELET COUNT 379 K/UL (150-450); PROTEIN,URINE 1+ (NEGATIVE); RED CELL DISTRIBUTION WIDTH 12.7 % (11.6-14.8); UROBILINOGEN,URINE NORMAL MG/DL (0.0-1.0); WHITE BLOOD COUNT 7.2 K/UL (4.8-10.8)
[2016-07-28 14:46] LABS: BACTERIA,URINE FEW /HPF; RBC,URINE 0-2 /HPF (0 - 2); SQUAMOUS EPITHELIAL CELL,UR FEW /LPF (NONE/OCC); WBC,URINE 0-2 /HPF (0 - 2)
[2016-07-28 14:47] LABS: INR 1.1 (0.9-1.1)
[2016-07-28 14:51] LABS: ALANINE AMINOTRANSFERASE 5 U/L (3-33); ALBUMIN/GLOBULIN RATIO 1.8 (1.0-2.7); ANION GAP 17 (5-15); ASPARTATE AMINO TRANSFERASE 9 U/L (5-40); CALCIUM 9.3 mg/dL (8.6-10.2); CARBON DIOXIDE 25 mEQ/L (20-30); CHLORIDE 100 mEQ/L (98-107); CREATININE 0.8 mg/dL (0.5-0.9); GLOMERULAR FILTRATION RATE > 60 mL/min (>60); HEMOLYSIS 0; SODIUM 142 mEQ/L (135-145); TOTAL PROTEIN 6.9 g/dL (6.6-8.7); TROPONIN I < 0.30 ng/mL (<=0.30)
[2016-07-28 15:51] VITALS: BP 115/64
[2016-07-28] MEDS ORDERED: ceFAZolin 1gm/50ml Premix 50 ML IVPB ONE (16:00)
[2016-07-28 16:59] VITALS: BP 115/73
[2016-07-28] MEDS ORDERED: Mylanta II UD 30ml ORAL PRN (17:45)
[2016-07-28] MEDS ORDERED: Miralax 17gm pkt ORAL PRN (17:45)
[2016-07-28] MEDS ORDERED: Morphine Sulfate 2mg/ml Inj IVP PRN (17:45)
[2016-07-28] MEDS ORDERED: Morphine Sulfate 4mg/ml Inj IVP PRN (17:45)
[2016-07-28] MEDS ORDERED: Milk of Magnesia 30ml Ud ORAL PRN (17:45)
[2016-07-28] MEDS ORDERED: LORazepam Inj 2mg/ml 1ml IV PRN (17:45)
[2016-07-28] MEDS ORDERED: Albuterol ud Inhalation IN-LINE PRN (17:45)
--- NOTE | 2016-07-28 17:57 | History and Physical ---
History of Present Illness General Date patient seen: Jul 28, 2016 Time patient seen: 17:54 Reason for Hospitalization: General Complaint Present Illness HPI 25 y/o AA female with hx of hidradenitis, presents with uncontrolled pain in the L axillary region. Pt has had previous surgery for abscess previously without complications. Her L axillary wound has partially opened up and is painful. No fevers/chills, has taken PO abx as outpt but without much impact. No chest pain or dyspnea, no abd pain or n/v. Allergies: Coded Allergies: TRAMADOL (Verified Allergy, Intermediate, 06/17/16) REACTION TO MED IS SWOLLEN LEG, NO SHORT OF BREATH CELECOXIB (Verified Allergy, Mild, Hives, 07/08/16) Tolerates Ibuprofen HYDROMORPHONE (Verified Allergy, Unknown, 07/06/16) Medication History Scheduled Levofloxacin* (Levaquin*), 750 MG ORAL DAILY, (Reported) Scheduled PRN Albuterol Sulfate* (Albuterol Sulfate Hhn*), 3 ML INH QID PRN for Shortness of Breath, (Reported) Hydrocodone Bit/Acetaminophen 10-325* ([place] 10-325*), 1 TAB ORAL Q4H PRN for For Pain, (Reported) Patient History History Provided By: Patient Healthcare decision maker Resuscitation status Advanced Directive on File Past Medical/Surgical History Past Medical/Surgical History: (1) Hydradenitis Family History Family History: Patient reports no known family medical history. Social History Social History: (1) No significant social history Review of Systems ROS Narrative CONSTITUTIONAL: No weight loss, fever, chills, weakness or fatigue. HEENT: Eyes: No visual loss, blurred vision, double vision or yellow sclerae. Ears, Nose, Throat: No hearing loss, sneezing, congestion, runny nose or sore throat. SKIN: No rash or itching. CARDIOVASCULAR: No chest pain, chest pressure or chest discomfort. No palpitations or edema. RESPIRATORY: No shortness of breath, cough or sputum. GASTROINTESTINAL: No anorexia, nausea, vomiting or diarrhea. No abdominal pain or blood. NEUROLOGICAL: No headache, dizziness, syncope, paralysis, ataxia, numbness or tingling in the extremities. No change in bowel or bladder control. MUSCULOSKELETAL: No muscle, back pain, joint pain or stiffness. +L axillary pain HEMATOLOGIC: No anemia, bleeding or bruising. LYMPHATICS: No enlarged nodes. No history of splenectomy. PSYCHIATRIC: No history of depression or anxiety. ENDOCRINOLOGIC: No reports of sweating, cold or heat intolerance. No polyuria or polydipsia. ALLERGIES: No history of asthma, hives, eczema or rhinitis. Physical Exam Physical Exam Narrative General: alert, cooperative, no distress, appears stated age Head: normocephalic, without obvious abnormality, atraumatic Eyes: conjunctivae/corneas clear. PERRL, EOM's intact Throat: lips, mucosa, and tongue normal. MMM Neck: supple, symmetrical, trachea midline, and no JVD Lungs: clear to auscultation bilaterally Heart: regular rate and rhythm, S1, S2 normal, no murmur, click, rub or gallop Abdomen: soft, non-tender, non-distended, bowel sounds normal; no masses or organomegaly Extremities: extremities normal, atraumatic, no cyanosis or edema, L axillary wound dehiscence Pulses: 2+ and symmetric Skin: skin color, texture, turgor normal; no rashes or lesions Neurologic: grossly normal, no focal deficits Last 24 Hour Vital Signs Date Time Temp Pulse Resp B/P Pulse Ox O2 Delivery O2 Flow Rate FiO2 07/28/16 16:59 98.4 75 18 115/73 99 Room Air 07/28/16 15:51 98.6 72 15 115/64 100 Room Air 07/28/16 15:04 98.6 07/28/16 14:31 70 16 110/62 100 Room Air 07/28/16 13:17 98.6 69 20 137/82 99 Room Air Laboratory Tests Test 07/28/16 13:50 White Blood Count 7.2 K/UL (4.8-10.8) Red Blood Count 3.90 M/UL (4.20-5.40) L Hemoglobin 10.5 G/DL (12.0-16.0) L Hematocrit 33.1 % (37.0-47.0) L Mean Corpuscular Volume 85 FL (80-99) Mean Corpuscular Hemoglobin 26.9 PG (27.0-31.0) L Mean Corpuscular Hemoglobin Concent 31.6 G/DL (32.0-36.0) L Red Cell Distribution Width 12.7 % (11.6-14.8) Platelet Count 379 K/UL (150-450) Mean Platelet Volume 7.1 FL (6.5-10.1) Neutrophils (%) (Auto) 39.2 % (45.0-75.0) L Lymphocytes (%) (Auto) 51.2 % (20.0-45.0) H Monocytes (%) (Auto) 6.4 % (1.0-10.0) Eosinophils (%) (Auto) 2.2 % (0.0-3.0) Basophils (%) (Auto) 1.1 % (0.0-2.0) Prothrombin Time 11.0 SEC (9.30-11.50) Prothromb Time International Ratio 1.1 (0.9-1.1) Activated Partial Thromboplast Time 30 SEC (23-33) Urine Color Yellow Urine Appearance Slightly cloudy Urine pH 5 (4.5-8.0) Urine Specific [place] 1.025 (1.005-1.035) Urine Protein 1+ (NEGATIVE) H Urine Glucose (UA) Negative (NEGATIVE) Urine Ketones Negative (NEGATIVE) Urine Occult Blood 1+ (NEGATIVE) H Urine Nitrite Negative (NEGATIVE) Urine Bilirubin Negative (NEGATIVE) Urine Urobilinogen Normal MG/DL (0.0-1.0) Urine Leukocyte Esterase Negative (NEGATIVE) Urine RBC 0-2 /HPF (0 - 2) Urine WBC 0-2 /HPF (0 - 2) Urine Squamous Epithelial Cells Few /LPF (NONE/OCC) Urine Bacteria Few /HPF (NONE) Urine HCG, Qualitative Negative Sodium Level 142 mEQ/L (135-145) Potassium Level 4.0 mEQ/L (3.4-4.9) Chloride Level 100 mEQ/L (98-107) Carbon Dioxide Level 25 mEQ/L (20-30) Anion Gap 17 (5-15) H Blood Urea Nitrogen 12 mg/dL (7-23) Creatinine 0.8 mg/dL (0.5-0.9) Estimat Glomerular Filtration Rate > 60 mL/min (>60) Glucose Level 89 mg/dL (74-106) Calcium Level 9.3 mg/dL (8.6-10.2) Total Bilirubin 0.3 mg/dL (0.0-1.2) Aspartate Amino Transf (AST/SGOT) 9 U/L (5-40) Alanine Aminotransferase (ALT/SGPT) 5 U/L (3-33) Alkaline Phosphatase 58 U/L (35-104) Total Creatine Kinase 47 U/L (26-140) Troponin I < 0.30 ng/mL (<=0.30) Total Protein 6.9 g/dL (6.6-8.7) Albumin 4.5 g/dL (3.5-5.2) Globulin 2.4 g/dL Albumin/Globulin Ratio 1.8 (1.0-2.7) Height (Feet): 5 Height (Inches): 5.00 Weight (Pounds): 182 Medications Current Medications Medications (Trade) Dose Ordered Sig/Kourtney Route PRN Reason Start Time Stop Time Status Last Admin Dose Admin Acetaminophen (Tylenol) 650 mg Q4H PRN ORAL Mild Pain (Pain Scale 1-3) 07/28/16 17:45 08/27/16 17:44 Acetaminophen (Tylenol) 650 mg Q4H PRN ORAL fever 07/28/16 17:45 08/27/16 17:44 Al Hydroxide/Mg Hydroxide (Mylanta II) 30 ml Q6H PRN ORAL dyspepsia 07/28/16 17:45 08/27/16 17:44 Albuterol Sulfate 2.5 mg 2.5 mg QID PRN IN-LINE Shortness of Breath 07/28/16 17:45 08/02/16 17:44 Bisacodyl (Dulcolax) 10 mg HSPRN PRN RECTAL Constipation 07/28/16 17:45 08/27/16 17:44 Cefazolin Sodium/ Dextrose (Ancef/D5W) 55 ml @ 110 mls/hr Q8HR IVPB 07/28/16 22:00 08/04/16 21:59 Dextrose STAT PRN IV Hypoglycemia 07/28/16 17:45 08/27/16 17:44 Dextrose/Sodium Chloride (D5ns) 1,000 ml @ 50 mls/hr Q20H IV 07/29/16 00:00 08/28/16 00:00 Diphenhydramine HCl (Benadryl) 25 mg Q6H PRN ORAL Itching/Pruritis 07/28/16 17:45 08/27/16 17:44 Docusate Sodium (Colace) 100 mg EVERY 12 HOURS ORAL 07/28/16 21:00 08/27/16 20:59 Lorazepam (Ativan 2mg/ml 1ml) 0.5 mg Q4H PRN IV For Anxiety 07/28/16 17:45 08/04/16 17:44 Magnesium Hydroxide (Mom) 30 ml HSPRN PRN ORAL Constipation 07/28/16 17:45 08/27/16 17:44 Morphine Sulfate (Morphine Sulfate) 2 mg Q4HR PRN IVP Moderate Pain (Pain Scale 4-6) 07/28/16 17:45 08/04/16 17:44 Morphine Sulfate (Morphine Sulfate) 4 mg Q4HR PRN IVP Severe Pain (Pain Scale 7-10) 07/28/16 17:45 08/04/16 17:44 Ondansetron HCl (Zofran) 4 mg Q6H PRN IVP Nausea & Vomiting 07/28/16 17:45 08/27/16 17:44 Polyethylene Glycol (Miralax) 17 gm HSPRN PRN ORAL Constipation 07/28/16 17:45 08/27/16 17:44 Temazepam (Restoril) 15 mg HSPRN PRN ORAL Insomnia 07/28/16 17:45 08/04/16 17:44 Assessment/Plan Problem List: (1) Abscess Assessment & Plan: Admit to inpatient f/u cultures Start IV abx Pain control Supp care Plastic Surgery consult If patient is required to have surgery, based on the patient's medical history, and other available ancillary data, the patient is a LOW risk for an INTERMEDIATE risk procedure. Per the most recent ACC/AHA guidelines, the patient does not need any further cardiopulmonary testing prior to the procedure and there do not appear to be any clear medical contraindications to proceeding with the proposed procedure. ICD Codes: L02.91 - Abscess SNOMED: [id number] ABIOLA BRANCH Jul 28, 2016 17:57
[2016-07-28 20:00] VITALS: BP 115/75
[2016-07-28] MEDS: ceFAZolin sod 1 GM in D5W 55 ML IVPB SCH (21:54)
[2016-07-28] MEDS: Docusate 100mg cap ORAL SCH (21:55)
--- NOTE | 2016-07-28 21:55 | Emergency Room Report ---
History of Present Illness General Chief Complaint: General Complaint Source: Patient, Family Member Present Illness HPI Patient presents with long history of axillary infections. Currently draining pus. No recent fever or chills. States pain 7/10. Took 2 [place] earlier today with minimal relief. Has been on multiple courses of ancef in the past without help. Tetanus UTD (when in college). H/O asthma. No recent wheezing. Occasionally uses inhaler at night. Not . Allergies: Coded Allergies: TRAMADOL (Verified Allergy, Intermediate, 06/17/16) REACTION TO MED IS SWOLLEN LEG, NO SHORT OF BREATH CELECOXIB (Verified Allergy, Mild, Hives, 07/08/16) Tolerates Ibuprofen HYDROMORPHONE (Verified Allergy, Unknown, 07/06/16) Patient History Past Medical History: see triage record Social History: Denies: smoking Social History Narrative with mother, from [place] Last Menstrual Period: 07/09/16 Now: No Nursing Documentation-PMH Past Medical History: No History, Except For Hx Cardiac Problems: No Hx Asthma: Yes Hx Diabetes: No Hx Cancer: No Hx Gastrointestinal Problems: No Hx Neurological Problems: No Review of Systems All Other Systems: negative except mentioned in HPI Physical Exam Vital Signs Date Time Temp Pulse Resp B/P Pulse Ox O2 Delivery O2 Flow Rate FiO2 07/28/16 13:17 98.6 69 20 137/82 99 Room Air Sp02 EP Interpretation: reviewed, normal General Appearance: well appearing, no apparent distress, GCS 15 Head: normocephalic, atraumatic Eyes: bilateral eye PERRL, bilateral eye normal inspection ENT: moist mucus membranes Neck: supple Respiratory: lungs clear, normal breath sounds Cardiovascular #1: regular rate, rhythm Cardiovascular #2: 2+ radial (R) Gastrointestinal: normal inspection, normal bowel sounds, non tender, no mass, non-distended Musculoskeletal: back normal, gait/station normal, normal range of motion Neurologic: alert, oriented x3 Psychiatric: mood/affect normal Skin: warm/dry, other - bilateral axillary lesions with erythema and min drainage Medical Decision Making Diagnostic Impression: Primary Impression: Axillary hidradenitis suppurativa Additional Impression: Abscess ER Course Patient presents with axillary abscesses. Ddx: abscesses, cellulitis, hidradenitis suppurativa. Evaluation with labs, EKG and CXR (due to h/o asthma) . IV hydration and analgesia ordered. Patient initially refused pain medicine, than agreed to toradol. Patient improved with toradol. Admit med, Dr. Jin. Discussed with him. He requested and ancef. Laboratory Tests Test 07/28/16 13:50 White Blood Count 7.2 K/UL (4.8-10.8) Red Blood Count 3.90 M/UL (4.20-5.40) L Hemoglobin 10.5 G/DL (12.0-16.0) L Hematocrit 33.1 % (37.0-47.0) L Mean Corpuscular Volume 85 FL (80-99) Mean Corpuscular Hemoglobin 26.9 PG (27.0-31.0) L Mean Corpuscular Hemoglobin Concent 31.6 G/DL (32.0-36.0) L Red Cell Distribution Width 12.7 % (11.6-14.8) Platelet Count 379 K/UL (150-450) Mean Platelet Volume 7.1 FL (6.5-10.1) Neutrophils (%) (Auto) 39.2 % (45.0-75.0) L Lymphocytes (%) (Auto) 51.2 % (20.0-45.0) H Monocytes (%) (Auto) 6.4 % (1.0-10.0) Eosinophils (%) (Auto) 2.2 % (0.0-3.0) Basophils (%) (Auto) 1.1 % (0.0-2.0) Prothrombin Time 11.0 SEC (9.30-11.50) Prothrombin Time INR 1.1 (0.9-1.1) PTT 30 SEC (23-33) Urine Color Yellow Urine Appearance Slightly cloudy Urine pH 5 (4.5-8.0) Urine Specific [place] 1.025 (1.005-1.035) Urine Protein 1+ (NEGATIVE) H Urine Glucose (UA) Negative (NEGATIVE) Urine Ketones Negative (NEGATIVE) Urine Occult Blood 1+ (NEGATIVE) H Urine Nitrite Negative (NEGATIVE) Urine Bilirubin Negative (NEGATIVE) Urine Urobilinogen Normal MG/DL (0.0-1.0) Urine Leukocyte Esterase Negative (NEGATIVE) Urine RBC 0-2 /HPF (0 - 2) Urine WBC 0-2 /HPF (0 - 2) Urine Squamous Epithelial Cells Few /LPF (NONE/OCC) Urine Bacteria Few /HPF (NONE) Urine HCG, Qualitative Negative Sodium Level 142 mEQ/L (135-145) Potassium Level 4.0 mEQ/L (3.4-4.9) Chloride Level 100 mEQ/L (98-107) Carbon Dioxide Level 25 mEQ/L (20-30) Anion Gap 17 (5-15) H Blood Urea Nitrogen 12 mg/dL (7-23) Creatinine 0.8 mg/dL (0.5-0.9) Estimate Glomerular Filtration Rate > 60 mL/min (>60) Glucose Level 89 mg/dL (74-106) Calcium Level 9.3 mg/dL (8.6-10.2) Total Bilirubin 0.3 mg/dL (0.0-1.2) Aspartate Amino Transferase (AST) 9 U/L (5-40) Alanine Aminotransferase (ALT) 5 U/L (3-33) Alkaline Phosphatase 58 U/L (35-104) Total Creatine Kinase 47 U/L (26-140) Troponin I < 0.30 ng/mL (<=0.30) Total Protein 6.9 g/dL (6.6-8.7) Albumin 4.5 g/dL (3.5-5.2) Globulin 2.4 g/dL Albumin/Globulin Ratio 1.8 (1.0-2.7) EKG Diagnostic Results Rate: normal Rhythm: NSR ST Segments: no acute changes Rhythm Strip Diag. Results EP Interpretation: yes Rhythm: NSR, no PVC's, no ectopy, other - from EKG Chest X-Ray Diagnostic Results EP Interpretation: Yes Findings: no consolidation, no effusion, no pneumothorax, no acute cardiopulmonary disease Number of Views: 1 Last Vital Signs Date Time Temp Pulse Resp B/P Pulse Ox O2 Delivery O2 Flow Rate FiO2 07/28/16 20:00 97.0 83 18 115/75 98 Room Air Status: improved Disposition: ADMITTED INPATIENT Condition: Serious Referrals: NICOLE DRAKE (PCP) Bradley Junior M.D. Jul 28, 2016 21:55
[2016-07-29] VITALS (12 sets, daily range): BP systolic 118–165; BP diastolic 62–83
[2016-07-29] MEDS: D5NS 1,000 ML IV SCH ×2 (00:08→20:10)
[2016-07-29] MEDS: ceFAZolin sod 1 GM in D5W 55 ML IVPB SCH ×2 (05:25→14:00)
[2016-07-29 07:22] LABS: ANION GAP 13 (5-15); CALCIUM 9.2 mg/dL (8.6-10.2); CARBON DIOXIDE 25 mEQ/L (20-30); CHLORIDE 106 mEQ/L (98-107); CREATININE 0.8 mg/dL (0.5-0.9); GLOMERULAR FILTRATION RATE > 60 mL/min (>60); HEMOLYSIS 0; POTASSIUM 4.2 mEQ/L (3.4-4.9); SODIUM 144 mEQ/L (135-145)
[2016-07-29] MEDS: Docusate 100mg cap ORAL SCH ×2 (09:00→21:41)
--- NOTE | 2016-07-29 10:19 | Pre-Procedure Note/Attestation ---
Pre-Procedure Note/Attestation Complete Prior to Procedure Planned Procedure: bilateral Procedure Narrative: Bilateral axillary wound closure Attestation I attest that I discussed the nature of the procedure; its benefits; risks and complications; and alternatives (and the risks and benefits of such alternatives ), prior to the procedure, with the patient (or the patient's legal freight representative). I attest that, if there was a reasonable possibility of needing a blood transfusion, the patient (or the patient's legal freight representative) was given the [facility] standardized written summary, pursuant to the [place] Blood Safety Act ([place] Health and Safety Code # 1645, as amended). I attest that I re-evaluated the patient just prior to the surgery and that there has been no change in the patient's H&P, except as documented below: NICOLE DRAKE Jul 29, 2016 10:19
--- NOTE | 2016-07-29 10:59 | Operative Note - PDOC ---
Operative Note Operative Note Pre-op Diagnosis: Bilateral open axillary wounds Procedure: Closure of bilateral open axillary wounds Surgeon: Wilda [employer]: Blanca Anesthesia: general Specimen: yes Complications: none Condition: stable Estimated Blood Loss: minimal Drains: none Implant(s) used?: No NICOLE DRAKE Jul 29, 2016 10:59
[2016-07-29] MEDS ORDERED: Zolpidem 5mg tab ORAL PRN (11:00)
[2016-07-29] MEDS ORDERED: Morphine Sulfate 2mg/ml Inj IVP PRN ×2 (11:00→12:30)
[2016-07-29] MEDS ORDERED: Norco 10mg/325mg tab ORAL PRN (11:00)
[2016-07-29] MEDS ORDERED: DiphenhydrAMINE 50mg/ml Inj IVP PRN ×2 (11:00→12:30)
[2016-07-29] MEDS ORDERED: Norco 5mg/325mg tab ORAL PRN (11:00)
[2016-07-29] MEDS ORDERED: Morphine Sulfate 4mg/ml Inj IVP PRN (11:00)
[2016-07-29] MEDS ORDERED: Bupivacaine w/Epi 0.5% 30ml Vial INJ ONE (11:21)
[2016-07-29] MEDS ORDERED: Bacitracin 50000 Units Vial ONE (11:21)
[2016-07-29] MEDS ORDERED: Propofol 10mg/ml 20ml IV ONE (11:21)
[2016-07-29] MEDS ORDERED: NS Irrig 1000ml ONE (11:30)
[2016-07-29] MEDS ORDERED: Ketorolac 30mg Inj ONE (11:30)
[2016-07-29] MEDS ORDERED: Sterile Water Irrig 1000ml IRRIG ONE (11:30)
[2016-07-29] MEDS ORDERED: LR 1000ml ONE (11:30)
[2016-07-29] MEDS ORDERED: fentaNYL 100 mcg/2 mL IV ONE (11:30)
[2016-07-29] MEDS ORDERED: Morphine Sulfate 10mg/ml Inj ONE (11:30)
[2016-07-29] MEDS ORDERED: Midazolam 2mg/2ml Inj ONE (11:30)
--- NOTE | 2016-07-29 11:49 | General Progress Note ---
Assessment/Plan Problem List: (1) Abscess Assessment & Plan: To OR today for surgery, seen by plastics f/u cultures Start IV abx Pain control Supp care Apprec Plastic Surgery consult ICD Codes: L02.91 - Abscess SNOMED: [id number] Subjective Date patient seen: Jul 29, 2016 Time patient seen: 11:48 ROS Limited/Unobtainable: No Allergies: Coded Allergies: TRAMADOL (Verified Allergy, Intermediate, 06/17/16) REACTION TO MED IS SWOLLEN LEG, NO SHORT OF BREATH CELECOXIB (Verified Allergy, Mild, Hives, 07/08/16) Tolerates Ibuprofen HYDROMORPHONE (Verified Allergy, Unknown, 07/06/16) Subjective Pt going to OR today for surgery, seen by plastics, reports no chest pain or dyspnea, pain well controlled on current regimen Objective Last 24 Hour Vital Signs Date Time Temp Pulse Resp B/P Pulse Ox O2 Delivery O2 Flow Rate FiO2 07/29/16 08:00 98.2 74 20 118/69 95 Room Air 07/29/16 04:00 98.2 72 18 121/62 99 Room Air 07/28/16 20:00 97.0 83 18 115/75 98 Room Air 07/28/16 19:59 78 18 Room Air 07/28/16 16:59 98.4 75 18 115/73 99 Room Air 07/28/16 15:54 98.6 72 15 115/64 100 Room Air 07/28/16 15:51 98.6 72 15 115/64 100 Room Air 07/28/16 15:04 98.6 07/28/16 14:31 70 16 110/62 100 Room Air 07/28/16 13:17 98.6 69 20 137/82 99 Room Air Intake and Output 07/28/16 07/29/16 19:00 07:00 Intake Total 1000 ml 670 ml Balance 1000 ml 670 ml Intake Oral 240 ml IV Total 1000 ml 430 ml # Voids 1 1 Laboratory Tests 07/28/16 13:50: White Blood Count 7.2, Red Blood Count 3.90L, Hemoglobin 10.5L, Hematocrit 33.1L , Mean Corpuscular Volume 85, Mean Corpuscular Hemoglobin 26.9L, Mean Corpuscular Hemoglobin Concent 31.6L, Red Cell Distribution Width 12.7, Platelet Count 379, Mean Platelet Volume 7.1, Neutrophils (%) (Auto) 39.2L, Lymphocytes (%) (Auto) 51.2H, Monocytes (%) (Auto) 6.4, Eosinophils (%) (Auto) 2.2, Basophils (%) (Auto) 1.1, Prothrombin Time 11.0, Prothromb Time International Ratio 1.1, Activated Partial Thromboplast Time 30, Urine Color Yellow, Urine Appearance Slightly cloudy, Urine pH 5, Urine Specific [place] 1.025, Urine Protein 1+H, Urine Glucose (UA) Negative, Urine Ketones Negative, Urine Occult Blood 1+H, Urine Nitrite Negative, Urine Bilirubin Negative, Urine Urobilinogen Normal, Urine Leukocyte Esterase Negative, Urine RBC 0-2, Urine WBC 0-2, Urine Squamous Epithelial Cells Few, Urine Bacteria Few, Urine HCG, Qualitative Negative, Sodium Level 142, Potassium Level 4.0, Chloride Level 100 , Carbon Dioxide Level 25, Anion Gap 17H, Blood Urea Nitrogen 12, Creatinine 0.8 , Estimat Glomerular Filtration Rate > 60, Glucose Level 89, Calcium Level 9.3, Total Bilirubin 0.3, Aspartate Amino Transf (AST/SGOT) 9, Alanine Aminotransferase (ALT/SGPT) 5, Alkaline Phosphatase 58, Total Creatine Kinase 47 , Troponin I < 0.30, Total Protein 6.9, Albumin 4.5, Globulin 2.4, Albumin/ Globulin Ratio 1.8 07/29/16 05:10: Sodium Level 144, Potassium Level 4.2, Chloride Level 106, Carbon Dioxide Level 25, Anion Gap 13, Blood Urea Nitrogen 17, Creatinine 0.8, Estimat Glomerular Filtration Rate > 60, Glucose Level 87, Calcium Level 9.2 Height (Feet): 5 Height (Inches): 5.00 Weight (Pounds): 182 Objective General: alert, cooperative, no distress, appears stated age Head: normocephalic, without obvious abnormality, atraumatic Eyes: conjunctivae/corneas clear. PERRL, EOM's intact Throat: lips, mucosa, and tongue normal. MMM Neck: supple, symmetrical, trachea midline, and no JVD Lungs: clear to auscultation bilaterally Heart: regular rate and rhythm, S1, S2 normal, no murmur, click, rub or gallop Abdomen: soft, non-tender, non-distended, bowel sounds normal; no masses or organomegaly Extremities: extremities normal, atraumatic, no cyanosis or edema, +L axillary wound dehiscence Pulses: 2+ and symmetric Skin: skin color, texture, turgor normal; no rashes or lesions Neurologic: grossly normal, no focal deficits ABIOLA BRANCH Jul 29, 2016 11:49
[2016-07-29] MEDS ORDERED: Lidocaine 1% 10mg/ml/Epi 0.005mg/ml 30ml vial INJ ONE ×2 (12:06→12:13)
[2016-07-29] MEDS ORDERED: LR 1000ml 1,000 ML IVLG SCH (12:21)
--- NOTE | 2016-07-29 12:21 | Anethesia Preoperative Eval ---
Anesthesia Pre-op PMH/ROS General Date of Evaluation: Jul 29, 2016 Time of Evaluation: 11:12 Anesthesiologist: Jennifer ASA Score: ASA 2 Mallampati Score Class I : Soft palate, uvula, fauces, pillars visible Class II: Soft palate, uvula, fauces visible Class III: Soft palate, base of uvula visible Class IV: Only hard plate visible Mallampati Classification: Class II Surgeon: Wilda Diagnosis: Recurent HS Surgical Procedure: Revsion ad closure of bilateral axillary wounds Anesthesia History: none Family History: no anesthesia problems Allergies: Coded Allergies: TRAMADOL (Verified Allergy, Intermediate, 06/17/16) REACTION TO MED IS SWOLLEN LEG, NO SHORT OF BREATH CELECOXIB (Verified Allergy, Mild, Hives, 07/08/16) Tolerates Ibuprofen HYDROMORPHONE (Verified Allergy, Unknown, 07/06/16) Medications: see eMAR Past Medical History Cardiovascular: Denies: CAD, HTN, VT, arrhythmia, other, valve dz Pulmonary: Denies: COPD, KEL, asthma, other Gastrointestinal/Genitourinary: Reports: GERD - mild, Denies: CRI, ESRD, other Neurologic/Psychiatric: Denies: CVA, TIA, dementia, depression/anxiety, other Endocrine: Denies: DM, hypothyroidism, other, steroids HEENT: Denies: [place] (L), [place] (R), cataract (L), cataract (R), glaucoma, other Hematology/Immune: Reports: anemia - mild, Denies: DVT, bleeding disorder, other Musculoskeletal/Integumentary: Reports: other - recurent HS, Denies: DDD, DJD, OA, RA, edema Other: other - overweight PMH Narrative: as above PSxH Narrative: Bilateral breasts reduction, Multiple Sx for HS treatment Anesthesia Pre-op Phys. Exam Physician Exam Last Vital Signs Date Time Temp Pulse Resp B/P Pulse Ox O2 Delivery O2 Flow Rate FiO2 07/29/16 08:00 98.2 74 20 118/69 95 Room Air Constitutional: NAD Neurologic: CN 2-12 intact Cardiovascular: RRR, no M/R/G Respiratory: CTA Gastrointestinal: S/NT/ND Airway Exam Mallampati Score: Class II MO: full Neck: flexible ROM: full Teeth: intact Dentures: no lower, no upper Anesthesia Pre-op A/P Labs Hematology Test 2/21/17 13:50 White Blood Count 7.2 K/UL (4.8-10.8) Red Blood Count 3.90 M/UL (4.20-5.40) L Hemoglobin 10.5 G/DL (12.0-16.0) L Hematocrit 33.1 % (37.0-47.0) L Mean Corpuscular Volume 85 FL (80-99) Mean Corpuscular Hemoglobin 26.9 PG (27.0-31.0) L Mean Corpuscular Hemoglobin Concent 31.6 G/DL (32.0-36.0) L Red Cell Distribution Width 12.7 % (11.6-14.8) Platelet Count 379 K/UL (150-450) Mean Platelet Volume 7.1 FL (6.5-10.1) Neutrophils (%) (Auto) 39.2 % (45.0-75.0) L Lymphocytes (%) (Auto) 51.2 % (20.0-45.0) H Monocytes (%) (Auto) 6.4 % (1.0-10.0) Eosinophils (%) (Auto) 2.2 % (0.0-3.0) Basophils (%) (Auto) 1.1 % (0.0-2.0) Coagulation Test 07/28/16 13:50 Prothrombin Time 11.0 SEC (9.30-11.50) Prothromb Time International Ratio 1.1 (0.9-1.1) Activated Partial Thromboplast Time 30 SEC (23-33) Chemistry Test 07/28/16 13:50 07/29/16 05:10 Sodium Level 142 mEQ/L (135-145) 144 mEQ/L (135-145) Potassium Level 4.0 mEQ/L (3.4-4.9) 4.2 mEQ/L (3.4-4.9) Chloride Level 100 mEQ/L (98-107) 106 mEQ/L (98-107) Carbon Dioxide Level 25 mEQ/L (20-30) 25 mEQ/L (20-30) Anion Gap 17 (5-15) H 13 (5-15) Blood Urea Nitrogen 12 mg/dL (7-23) 17 mg/dL (7-23) Creatinine 0.8 mg/dL (0.5-0.9) 0.8 mg/dL (0.5-0.9) Estimat Glomerular Filtration Rate > 60 mL/min (>60) > 60 mL/min (>60) Glucose Level 89 mg/dL (74-106) 87 mg/dL (74-106) Calcium Level 9.3 mg/dL (8.6-10.2) 9.2 mg/dL (8.6-10.2) Total Bilirubin 0.3 mg/dL (0.0-1.2) Aspartate Amino Transf (AST/SGOT) 9 U/L (5-40) Alanine Aminotransferase (ALT/SGPT) 5 U/L (3-33) Alkaline Phosphatase 58 U/L (35-104) Total Creatine Kinase 47 U/L (26-140) Troponin I < 0.30 ng/mL (<=0.30) Total Protein 6.9 g/dL (6.6-8.7) Albumin 4.5 g/dL (3.5-5.2) Globulin 2.4 g/dL Albumin/Globulin Ratio 1.8 (1.0-2.7) Urine Test Test 07/28/16 13:50 Urine HCG, Qualitative Negative Studies Pre-op Studies: EKG - NSR Risk Assessment & Plan Assessment: GA with LMA Plan: ASA 2 Status Change Before Surgery: No Pre-Antibiotics Drug: Ancef 1gr. Given Within 1 Hr of Incision: Yes Time Given: 11:57 ANH FELIZ M.D. Jul 29, 2016 12:21
[2016-07-29] MEDS ORDERED: Metoclopramide 10mg/2ml Inj IVP PRN (12:30)
[2016-07-29] MEDS ORDERED: fentaNYL 100 mcg/2 mL IV PRN (12:30)
[2016-07-29] MEDS ORDERED: Ketorolac 30mg Inj IV PRN (12:30)
[2016-07-29] MEDS ORDERED: Meperidine 25mg/ml Inj IV PRN (12:30)
--- NOTE | 2016-07-29 13:23 | Immediate Post-Op Evaluation ---
Immediate Post-Op Evalulation Immediate Post-Op Evalulation Procedure: Bilateral axillary wounds closure Date of Evaluation: Jul 29, 2016 Time of Evaluation: 13:21 IV Fluids: 800 Blood Products: none Estimated Blood Loss: min Urinary Output: none Blood Pressure Systolic: 124 Blood Pressure Diastolic: 78 Pulse Rate: 84 Respiratory Rate: 20 O2 Sat by Pulse Oximetry: 99 Temperature (Fahrenheit): 97.6 Pain Score (1-10): 2 Nausea: No Vomiting: No Complications none Patient Status: awake, patent, none Hydration Status: adequate ANH FELIZ M.D. Jul 29, 2016 13:23
[2016-07-29] MEDS: Morphine Sulfate 2mg/ml Inj IVP PRN (17:36)
--- NOTE | 2016-07-29 20:28 | Operative Note - Dictated ---
DATE OF OPERATION: 07/29/2016 PREOPERATIVE DIAGNOSIS: Bilateral open axillary wounds. POSTOPERATIVE DIAGNOSIS: Bilateral open axillary wounds. PROCEDURES: 1. Debridement of left axillary wound. 2. Elevation of medial brachial arm flap for closure of left axillary wound. 3. Elevation of a lateral chest wall flap for closure of left axillary wound. 4. Debridement of right axillary wound. 5. Elevation of a right-sided medial brachial arm flap for closure of right axillary wound. 6. Elevation of a right lateral chest wall flap for closure of right axillary wound. SURGEON: Fina Astudillo M.D. TEXTILE MACHINE MECHANIC: Lianet Rios M.D. ANESTHESIA: General. COMPLICATIONS: None. DRAINS: None. EBL: Minimal. DISPOSITION: Stable to the recovery room. INDICATIONS FOR SURGERY: This is a 25-year-old female who is well known to me, who presented to the emergency room last night with bilateral open axillary wounds approximately three weeks status post a flap closure. She has been having some pain and drainage in the area. As such, she was admitted, started on IV antibiotics, and I felt that she was an appropriate candidate for readvancement of her flaps and closure of the wounds. She understood the risks and benefits of surgery and agreed to proceed. DETAILS OF THE OPERATION: The patient was brought to the operating room and was laid supine on the operating room table. Her bilateral axillary regions were prepped and draped in a sterile and usual fashion. We first began on the left side and delineated with an elliptical type of incision the area that needed to be excised. This measured approximately 5 x 3 cm. Once the markings were made, a 15 blade was then used to make the skin incision all the way down to the level of the subcutaneous fat. The electrocautery was then used to debride all the way down to the axillary fascia. It was clearly obvious that the wound could not be closed primarily. After hemostasis was achieved, the wound was irrigated with pulse lavage. A medial brachial arm flap was elevated based off of branches of the brachial artery. This was elevated at the fasciocutaneous level with proximal and distal incisions made to fully mobilize the flap. Similarly, a lateral chest wall flap had to be elevated based off of perforators of the intercostal artery. This was elevated at the fasciocutaneous level with proximal and distal incisions made to fully mobilize the flap. With both these flaps fully mobilized, they were able to be readvanced and closed using 0 and 2-0 Vicryl sutures, and a 2-0 Prolene was used to close the skin. We then turned our attention to the contralateral right axilla. This wound was also similarly approached with markings that lead to a 4 x 2 cm defect, which again could not be closed primarily. Following irrigation and hemostasis being achieved, a medial brachial arm flap on the right side was elevated based off of perforators of the brachial artery with proximal and distal incisions made to fully mobilize the fasciocutaneous flap and similarly, a lateral chest wall flap on the right side also had to be elevated based off of perforators of the intercostal arteries with proximal and distal incisions made to also fully mobilize this fasciocutaneous flap to allow for a tension-free closure. This wound was also closed using 0 and 2-0 Vicryl sutures, and multiple interrupted 2-0 Prolenes were used to close the skin. Both this and the contralateral axillary incision were then covered with Dermabond skin glue and compressive dressings were applied. The patient tolerated the procedure well. There were no complications. Fina Astudillo M.D. DR: STARLA JOB#: [id number] CC: EMILEE
[2016-07-29] MEDS: Heparin 5000 units/ml inj SUBQ SCH (21:44)
[2016-07-29] MEDS: ceFAZolin sod 1 GM in D5W 55 ML IV SCH (21:45)
[2016-07-30 04:00] VITALS: BP 130/65
[2016-07-30] MEDS: Morphine Sulfate 2mg/ml Inj IVP PRN ×2 (04:17→09:08)
[2016-07-30] MEDS: ceFAZolin sod 1 GM in D5W 55 ML IV SCH (05:10)
[2016-07-30 08:00] VITALS: BP 115/70
[2016-07-30] MEDS: Docusate 100mg cap ORAL SCH (09:07)
[2016-07-30] MEDS: Heparin 5000 units/ml inj SUBQ SCH (09:14)
--- NOTE | 2016-07-30 10:40 | 48 Hour Post Anesthesia Eval ---
Post Anesthesia Evaluation Procedure: Bilateral axillary wounds closure Date of Evaluation: Jul 30, 2016 Time of Evaluation: 10:39 Blood Pressure Systolic: 116 0: 72 Pulse Rate: 85 Respiratory Rate: 22 Temperature (Fahrenheit): 97.4 O2 Sat by Pulse Oximetry: 98 Airway: patent Nausea: No Vomiting: No Pain Intensity: 3 Hydration Status: adequate Cardiopulmonary Status: stable Mental Status/LOC: patient returned to baseline Follow-up Care/Observations: n/a Post-Anesthesia Complications: none Follow-up care needed: N/A ANH FELIZ M.D. Jul 30, 2016 10:40
[2016-07-30 12:00] VITALS: BP 131/78
--- NOTE | 2016-07-30 12:10 | Discharge Summary ---
Discharge Summary Hospital Course Date of Admission Jul 28, 2016 at 13:40 Date of Discharge Jul 30, 2016 Admitting Diagnosis L axillary wound abscess/dehiscence Reason for Hospitalization: as above HPI Rox Tejeda is a 25 year old female who was admitted on Jul 28, 2016 at 13: 40 for Hydrosis Supperativa Consultations Plastic Surgery Procedures See Operative report Hospital Course 25 y/o AA female with hx of hidradenitis, s/p previous bilateral axillary wound I+D, presented with partial wound dehiscence and abscess, taken to OR by plastic surgery, started on IV abx as well. No periop or postop complications, once pain controlled she was dced home on pain meds and abx. Discharge Medications Continued Medications: Albuterol Sulfate* (Albuterol Sulfate Hhn*) 2.5 Mg/3 Ml Vial.neb 3 ML INH QID PRN for Shortness of Breath, #30 EA Hydrocodone Bit/Acetaminophen 10-325* (Centrahoma 10-325*) 1 Each Tablet 1 TAB ORAL Q4H PRN for For Pain, #30 TAB 0 Refills PRN PAIN Discontinued Medications: Levofloxacin* (Levaquin*) 750 Mg Tablet 750 MG ORAL DAILY, TAB Discharge Condition Upon Discharge: stable Discharge Disposition Patient was discharged to home Discharge Diagnoses: (1) abscess (2) Axillary hidradenitis suppurativa ABIOLA BRANCH Jul 30, 2016 12:10
[2016-07-30] MEDS ORDERED: NORCO 5-325 TA1 EACH ORAL ×2 (12:30)
[2016-07-30] MEDS ORDERED: CEPHALEXIN500 MG ORAL (12:32)
--- NOTE | 2016-07-30 15:15 | Cardiology Report ---
APPROVED REPORT EKG Measurement Heart [id number] Normal sinus rhythm with sinus arrhythmia Nonspecific T wave abnormality Abnormal ECG
== END 2016-07-30 15:30 | disposition home or self-care (01) | DRG 572 ==
LOC: EMR 13:27 → 3E 13:40 → EDBEDREQ 13:48 → 3E 21:00
PROC: 0JBD0ZZ Excision of Right Upper Arm Subcutaneous Tissue and Fascia, Open Approach (ICD-10-PCS; principal; 2016-07-29 12:00)
PROC: 0JBF0ZZ Excision of Left Upper Arm Subcutaneous Tissue and Fascia, Open Approach (ICD-10-PCS; principal; 2016-07-29 12:00)
PROC: 0JXD0ZZ Transfer Right Upper Arm Subcutaneous Tissue and Fascia, Open Approach (ICD-10-PCS; principal; 2016-07-29 12:00)
PROC: 0JX60ZZ Transfer Chest Subcutaneous Tissue and Fascia, Open Approach (ICD-10-PCS; principal; 2016-07-29 12:00)
PROC: 0JXF0ZZ Transfer Left Upper Arm Subcutaneous Tissue and Fascia, Open Approach (ICD-10-PCS; principal; 2016-07-29 12:00)
DX: L02.412 Cutaneous abscess of left axilla (principal); L73.2 Hidradenitis suppurativa; Z88.6 Allergy status to analgesic agent; Z88.8 Allergy status to other drugs, medicaments and biological substances
CPT/HCPCS: 36415; 71010; 80048; 80053; 81003; 81025; 82550; 84484; 85025; 85610; 85730; 86850; 86900; 86901; 87040; 87081; 93005; 94003; 94150; 94664; J2250; J2405